=== PATIENT | male | born 1990 | race Caucasian/White ===

== ENCOUNTER 2017-10-25 13:15 | Emergency (ER) | payer SELFPAY ==
[~2017-10-25] VITALS: Ht 172.7 cm; Wt 158.8 kg
[~2017-10-25 13:15] MED LIST: BENZ200C25 PO; CEPH500C PO; HYDR-1231 PO; LEVO750T6 PO; LNS30CCR; METF-380; METF-380 PO; NFPRILOC40 PO; PIOG45TA PO; SRTR100T; TRAZ150T42; TRAZ150T42 PO
[2017-10-25 15:48] LABS: BASOPHILS % (AUTO) 0 % (0-10); EOSINOPHILS # (AUTO) 0.2 10^3/uL (0.0-0.3); EOSINOPHILS % (AUTO) 2 % (0-10); HEMATOCRIT 47 % (40-54); HEMOGLOBIN 15.7 G/DL (13.3-17.7); LYMPHOCYTES # (AUTO) 2.5 X 10^3 (1.0-4.0); LYMPHOCYTES % (AUTO) 25 % (12-44); MEAN CORPUSCULAR HEMOGLOBIN 29 PG (25-34); MEAN CORPUSCULAR HGB CONC 34 G/DL (32-36); MEAN CORPUSCULAR VOLUME 86 FL (80-99); MEAN PLATELET VOLUME 11.5 FL (7.4-10.4); MONOCYTES # (AUTO) 0.8 X 10^3 (0.0-1.0); MONOCYTES % (AUTO) 8 % (0-12); NEUTROPHILS # (AUTO) 6.5 X 10^3 (1.8-7.8); NEUTROPHILS % (AUTO) 65 % (42-75); PLATELET COUNT 240 10^3/uL (130-400); RED CELL DISTRIBUTION WIDTH 13.7 % (10.0-14.5)
[2017-10-25 15:51] LABS: BILIRUBIN,URINE NEGATIVE (NEGATIVE); CLARITY,URINE CLEAR; COLOR,URINE YELLOW; GLUCOSE, URINE (UA) 4+ (NEGATIVE); KETONES,URINE NEGATIVE (NEGATIVE); LEUKOCYTE ESTERASE ,URINE 1+ (NEGATIVE); NITRITE,URINE NEGATIVE (NEGATIVE); PH,URINE 6 (5-9); PROTEIN,URINE 3+ (NEGATIVE); UROBILINOGEN,URINE NORMAL (NORMAL)
[2017-10-25 15:59] LABS: BACTERIA,URINE TRACE /HPF; SQUAMOUS EPITHELIAL CELL,UR 0-2 /HPF
--- NOTE | 2017-10-25 16:08 | Diagnostic Imaging Report ---
INDICATION: Cough. COMPARISON: 01/17/10. EXAMINATION: Single view of the chest was obtained. FINDINGS: Clear lungs, bilaterally. The heart is normal. There is no pneumothorax. The osseous structures are normal. IMPRESSION: Negative chest. Dictated by: Dictated on workstation # [id number]
[2017-10-25 16:11] LABS: ALANINE AMINOTRANSFERASE 26 U/L (0-55); ALBUMIN 4.2 GM/DL (3.2-4.5); ALKALINE PHOSPHATASE 77 U/L (40-136); BILIRUBIN,TOTAL 0.3 MG/DL (0.1-1.0); BUN/CREATININE RATIO 13; CALCIUM 9.2 MG/DL (8.5-10.1); CARBON DIOXIDE 26 MMOL/L (21-32); CHLORIDE 106 MMOL/L (98-107); CREATININE SERUM 0.85 MG/DL (0.60-1.30); GFR ESTIMATED > 60; GLUCOSE 196 MG/DL (70-105); MAGNESIUM 2.1 MG/DL (1.8-2.4); POTASSIUM 3.9 MMOL/L (3.6-5.0); SODIUM 139 MMOL/L (135-145); TOTAL PROTEIN 7.6 GM/DL (6.4-8.2)
[2017-10-25 16:30] LABS: TSH (THYROID ANALYZER) 0.89 UIU/ML (0.35-4.94)
[2017-10-25] MEDS ORDERED: ONDA4TAB8 SL (16:48)
--- NOTE | 2017-10-25 16:49 | ED General ---
General Chief Complaint: Dizziness/Syncope Stated Complaint: SICK X1 WEEK,CHILLS, DIZZY, Nursing Triage Note: PT REPORTS DIZZINESS, MALAISE X 1 WEEK. Nursing Sepsis Screen: No Definite Risk Source of Information: Patient Exam Limitations: No Limitations History of Present Illness Date Seen by Provider: Oct 25, 2017 Time Seen by Provider: 15:13 Initial Comments Patient presents to the emergency room with complaints of several symptoms including dizziness, occasional abdominal pain and nausea. He has vomited a few times. Pain seems to be worse when eating. He is concerned about his occasional dizziness and lightheadedness. He reports a recent episode in which he actually briefly "blacked out". There is no seizure-like activity. He reports having some chills without fever recently. He is noted to be hypertensive with a blood pressure of 146/100 on assessment. He reports having palpitations and chest discomfort but only when he has angrier agitated. He denies tobacco or drug use. He rarely drinks alcohol. He has had mild cough recently. He has diabetes but takes his medications irregularly. Allergies and Home Medications Allergies Coded Allergies: Sulfa (Sulfonamide Antibiotics) (Unverified Allergy, Mild, 12/05/08) Uncoded Allergies: STEROIDS (Allergy, Mild, 12/05/08) Home Medications Cephalexin Monohydrate 500 Mg Capsule, 1 EACH PO TID Prescribed by: JEREMÍAS GARDNER on 11/20/131909 Hydrocodone Bit/Acetaminophen 1 Tab Tablet, 1 TAB PO Q4H PRN for PAIN Prescribed by: JEREMÍAS GARDNER on 11/20/131909 Ondansetron 4 Mg Tab.rapdis, 4 MG SL Q4H PRN for NAUSEA/VOMITING-1ST LINE Prescribed by: TOBY RECINOS on 10/25/17 1648 Patient Home Medication List Home Medication List Reviewed: Yes Constitutional: no symptoms reported EENTM: no symptoms reported Respiratory: see HPI Cardiovascular: see HPI Gastrointestinal: see HPI Genitourinary: no symptoms reported Musculoskeletal: no symptoms reported Skin: no symptoms reported Psychiatric/Neurological: See HPI Hematologic/Lymphatic: No Symptoms Reported Immunological/Allergic: no symptoms reported Past Tlqjali-Jyhzdr-Madepr Hx Patient Social History Alcohol Use: Rarely Uses Recreational Drug Use: No Smoking Status: Never a Smoker Recent Foreign Travel: No Contact w/Someone Who Travel: No Recent Infectious Disease Expo: No Physical Abuse: No Sexual Abuse: No Mistreated: No Fear: No Immunizations Up To Date Tetanus Booster (TDap): Less than 5yrs Surgeries History of Surgeries: No Respiratory History of Respiratory Disorde: Yes Respiratory Disorders: Asthma, Sleep Apnea Cardiovascular History of Cardiac Disorders: Yes Cardiac Disorders: Hypertension Neurological History of Neurological Disord: No Reproductive System Hx Reproductive Disorders: No Genitourinary History of Genitourinary Disor: No Gastrointestinal History of Gastrointestinal Di: No Musculoskeletal History of Musculoskeletal Dis: No Endocrine History of Endocrine Disorders: Yes (morbid obesity) Endocrine Disorders: Diabetes, Non-Insulin dep HEENT History of HEENT Disorders: No Cancer History of Cancer: No Psychosocial History of Psychiatric Problem: No Suicide Risk Score: 0 Integumentary History of Skin or Integumenta: No Blood Transfusions History of Blood Disorders: No Family Medical History Significant Family History: Heart Disease Physical Exam Vital Signs Vital Signs - First Documented 10/25/17 14:02 Temp 98.3 Pulse 115 Resp 18 B/P (MAP) 188/113 (138) Pulse Ox 97 Capillary Refill : Less Than 3 Seconds General Appearance: No Apparent Distress, WD/WN, Obese HEENT: PERRL/EOMI, Normal ENT Inspection Neck: Normal Inspection Respiratory: Lungs Clear, Normal Breath Sounds, No Accessory Muscle Use, No Respiratory Distress Cardiovascular: Regular Rate, Rhythm, No Edema, No Murmur Gastrointestinal: Normal Bowel Sounds, Non Tender, Soft Extremity: Normal Inspection, No Pedal Edema Neurologic/Psychiatric: Alert, Oriented x3, No Motor/Sensory Deficits, Normal Mood/Affect, skimmer reverberatory II-XII Norm as Tested Skin: Normal Color, Warm/Dry Progress/Results/Core Measures Suspected Sepsis Recent Fever Within 48 Hours: No Infection Criteria Present: None New/Unexplained Altered Menta: No Sepsis Screen: No Definite Risk Sepsis Diagnosis: SIRS Temperature:98.3 Pulse: 115 Respiratory Rate: 18 Laboratory Tests 10/25/17 15:40: White Blood Count 10.0 Blood Pressure 188 /113 Mean: 138 Laboratory Tests 10/25/17 15:40: Creatinine 0.85, Platelet Count 240, Total Bilirubin 0.3 Results/Orders Lab Results Laboratory Tests Test 10/25/17 15:40 10/25/17 15:45 Range/Units White Blood Count 10.0 4.3-11.0 10^3/uL Red Blood Count 5.40 4.35-5.85 10^6/uL Hemoglobin 15.7 13.3-17.7 G/DL Hematocrit 47 40-54 % Mean Corpuscular Volume 86 80-99 FL Mean Corpuscular Hemoglobin 29 25-34 PG Mean Corpuscular Hemoglobin Concent 34 32-36 G/DL Red Cell Distribution Width 13.7 10.0-14.5 % Platelet Count 240 130-400 10^3/uL Mean Platelet Volume 11.5 H 7.4-10.4 FL Neutrophils (%) (Auto) 65 42-75 % Lymphocytes (%) (Auto) 25 12-44 % Monocytes (%) (Auto) 8 0-12 % Eosinophils (%) (Auto) 2 0-10 % Basophils (%) (Auto) 0 0-10 % Neutrophils # (Auto) 6.5 1.8-7.8 X 10^3 Lymphocytes # (Auto) 2.5 1.0-4.0 X 10^3 Monocytes # (Auto) 0.8 0.0-1.0 X 10^3 Eosinophils # (Auto) 0.2 0.0-0.3 10^3/uL Basophils # (Auto) 0.0 0.0-0.1 10^3/uL Sodium Level 139 135-145 MMOL/L Potassium Level 3.9 3.6-5.0 MMOL/L Chloride Level 106 98-107 MMOL/L Carbon Dioxide Level 26 21-32 MMOL/L Anion Gap 7 5-14 MMOL/L Blood Urea Nitrogen 11 7-18 MG/DL Creatinine 0.85 0.60-1.30 MG/DL Estimat Glomerular Filtration Rate > 60 BUN/Creatinine Ratio 13 Glucose Level 196 H 70-105 MG/DL Calcium Level 9.2 8.5-10.1 MG/DL Magnesium Level 2.1 1.8-2.4 MG/DL Total Bilirubin 0.3 0.1-1.0 MG/DL Aspartate Amino Transf (AST/SGOT) 25 5-34 U/L Alanine Aminotransferase (ALT/SGPT) 26 0-55 U/L Alkaline Phosphatase 77 40-136 U/L Total Protein 7.6 6.4-8.2 GM/DL Albumin 4.2 3.2-4.5 GM/DL TSH [place] Testing 0.89 0.35-4.94 UIU/ML Urine Color YELLOW Urine Clarity CLEAR Urine pH 6 5-9 Urine Specific [place] 1.020 1.016-1.022 Urine Protein 3+ H NEGATIVE Urine Glucose (UA) 4+ H NEGATIVE Urine Ketones NEGATIVE NEGATIVE Urine Nitrite NEGATIVE NEGATIVE Urine Bilirubin NEGATIVE NEGATIVE Urine Urobilinogen NORMAL NORMAL MG/DL Urine Leukocyte Esterase 1+ H NEGATIVE Urine RBC (Auto) NEGATIVE NEGATIVE Urine RBC NONE /HPF Urine WBC 2-5 /HPF Urine Squamous Epithelial Cells 0-2 /HPF Urine Crystals NONE /LPF Urine Bacteria TRACE /HPF Urine Casts NONE /LPF Urine Mucus NEGATIVE /LPF Urine Culture Indicated NO My Orders Orders - TOBY ENG MD Cbc With Automated Diff (10/25/17 15:22) Comprehensive Metabolic Panel (10/25/17 15:22) Magnesium (10/25/17 15:22) Thyroid Analyzer (10/25/17 15:22) Ua Culture If Indicated (10/25/17 15:22) Saline Lock/Iv-Start (10/25/17 15:22) Ekg Tracing (10/25/17 15:22) Monitor-Rhythm Ecg Trace Only (10/25/17 15:22) Chest Pa/Lat (2 View) (10/25/17 15:22) Hemoglobin A1c (10/25/17 16:33) Vital Signs/I&O Capillary Refill : Less Than 3 Seconds Blood Pressure Mean: 138 ECG Initial ECG Impression Date: Oct 25, 2017 Initial ECG Impression Time: 15:33 Initial ECG Rate: 88 Initial ECG Rhythm: Normal Sinus Initial ECG Intervals: Normal Initial ECG Impression: Normal Comment Normal sinus rhythm with no ST elevation or depression. No abnormal intervals or axis deviation. Diagnostic Imaging Diagonstic Imaging: Xray Plain Films/CT/US/NM/MRI: chest Comments Chest x-ray viewed by me and report reviewed. See report below: NAME: CEDRIC VICK [facility] REC#: [id number] PT STATUS: REG ER : 1990 PHYSICIAN: TOBY ENG MD ADMIT DATE: 10/25/17/ER Signed Date of Exam: 10/25/17 CHEST PA/LAT (2 VIEW) INDICATION: Cough. COMPARISON: 01/17/10. EXAMINATION: Single view of the chest was obtained. FINDINGS: Clear lungs, bilaterally. The heart is normal. There is no pneumothorax. The osseous structures are normal. IMPRESSION: Negative chest. Dictated by: Dictated on workstation # [id number] Dict: 10/25/17 1544 Trans: 10/25/17 1610 Interpreted by: MONSE NEELY Electronically signed by: MONSE NEELY 10/25/17 1610 Departure Impression Impression: Primary Impression: Lightheadedness Additional Impressions: Palpitations Nausea and vomiting Qualified Codes: R11.2 - Nausea with vomiting, unspecified Hyperglycemia Hypertension Qualified Codes: I10 - Essential (primary) hypertension Disposition: HOME, SELF-CARE Condition: Improved Departure-Patient Inst. Decision time for Depature: 16:45 Referrals: [facility] [place]) Primary Care Physician Patient Instructions: Diabetes Type 2 (DC), High Blood Pressure in Adults, Syncope (Fainting) (DC) Add. Discharge Instructions: Continue to take metformin as prescribed. Eat a low carbohydrate low sugar diet. Drink plenty of clear liquids. Follow-up with your primary care provider soon as possible. If palpitations and lightheadedness continue, consider discussing a monitor tech for evaluation of cardiac rhythms in the outpatient setting. Continue to exercise and work toward weight loss. Return to the ER if symptoms worsen. You may use Zofran (ondansetron) as prescribed for nausea and vomiting. Also consider using an antacid medication such as Pepcid (famotidine) or Prilosec (omeprazole) for upset stomach. All discharge instructions reviewed with patient and/or family. Voiced understanding. Scripts Ondansetron (Zofran Odt) 4 Mg Tab.rapdis 4 MG SL Q4H Y for NAUSEA/VOMITING-1ST LINE, #10 TAB Prov: TOBY ENG MD 10/25/17 Work/School Note: Work Release Form Date Seen in the Emergency Department: Oct 25, 2017 Return to Work: Oct 26, 2017 Restrictions: No Restrictions Copy Copies To 1: SUJATHA NUGENT JOSHUA T MD Oct 25, 2017 16:49
[2017-10-25 16:57] VITALS: BP 146/100
--- OUTSIDE RECORDS SUMMARY | 2017-10-26 04:36 | XMS REPORT ---
Author Author ANDI SALAZAR [facility] [place] eClinicalWorks Address Unknown Phone Unavailable Care Team Providers Care Arts [employer] Humanities [employer] Director Name Role Phone ANDI SALAZAR Unavailable Allergies No Known Allergies Problems No Known Problems Medications No Known Medications Results No Known Results Summary Purpose eClinicalWorks Submission
--- OUTSIDE RECORDS SUMMARY | 2017-10-26 04:36 | XMS REPORT ---
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 682835519 Problem Diabetes mellitus E11.9 Active 42429908 Problem Hyperlipidemia E78.5 Active 16044540 ALLERGIES Substance Reaction Event Type Date Status Sulfamethoxazole Unknown Drug Allergy Jun, Active PredniSONE nausea and vomiting Drug Allergy Jun, Active SOCIAL HISTORY No smoking Hx information available PLAN OF CARE Activity Details Follow Up 1 Week Reason:TE VITAL SIGNS Height 68.0 in 2016-07-22 Blood pressure systolic 123 mmHg 2016-07-22 Blood pressure diastolic 81 mmHg 2016-07-22 MEDICATIONS Medication Instructions Dosage Frequency Start Date End Date Duration Status Lisinopril 30 MG Orally Once a day 1 tablet 24h Dec, Active Amoxicillin 500 MG Orally 4 times a day 1 capsule 6h Jun, Jul, 7 days Active Metformin HCl 500 MG Orally Twice a day 1 tablet with meals 12h Dec, Active RESULTS No Results PROCEDURES Procedure Date Ordered Related Diagnosis Body Site LTD ORAL EVALUATION - PROBLEM FOCUS Jul 22, 2016 INTRAORL-PERIAPICAL 1 FILM 92053 Jul 22, 2016 IMMUNIZATIONS No Known Immunizations
--- OUTSIDE RECORDS SUMMARY | 2017-10-26 04:36 | XMS REPORT ---
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
--- OUTSIDE RECORDS SUMMARY | 2017-10-26 04:36 | XMS REPORT | Continuity of Care Document ---
Author Author [facility] Organization [facility] Address Unknown Phone Unavailable Allergies There is no data. Medications There is no data. Problems There is no data. Procedures There is no data. Results There is no data. Encounters ACCT No. Visit Date/Time Discharge Status Pt. Type Provider Facility Loc./Unit Complaint [id number] 11/22/2013 12:38:00 11/22/2013 13:27:00 DIS Emergency [id number] 11/20/2013 22:15:00 11/21/2013 01:23:00 DIS Emergency [id number] 11/20/2013 17:16:00 11/20/2013 19:30:00 DIS Emergency [id number] 04/01/2013 10:25:00 04/01/2013 23:59:59 CLS Outpatient [id number] 03/01/2013 08:39:00 03/01/2013 23:59:59 CLS Outpatient
--- OUTSIDE RECORDS SUMMARY | 2017-10-26 04:36 | XMS REPORT ---
Author Author ANDI SALAZAR [facility] eClinicalWorks Address Unknown Phone Unavailable Care Team Providers Care Payroll Accounting Clerk Name Role Phone ANDI SALAZAR CP Unavailable Allergies, Adverse Reactions, Alerts Substance Reaction Event Type Sulfamethoxazole Info Not Available Drug Allergy PredniSONE nausea and vomiting Drug Allergy Problems Problem Type Condition Code Onset Dates Condition Status Assessment Hyperlipidemia E78.5 Active Assessment Obesity E66.9 Active Assessment Hypertension I10 Active Problem Diabetes mellitus E11.9 Active Problem Obesity E66.9 Active Problem Depression F32.9 Active Problem Hyperlipidemia E78.5 Active Assessment Diabetes mellitus E11.9 Active Problem Hypertension I10 Active 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 Medications Medication Code System Code Instructions Start Date End Date Status Dosage Lisinopril [facility] [address]-57 20 MG Orally Once a day Jun 21, 2015 1 tablet Procedures Procedure Coding System Code Date COMPLETE CBC W/AUTO DIFF WBC CPT-4 89321 November 23, 2015 COMPREHEN METABOLIC PANEL CPT-4 72291 November 23, 2015 GLYCATED HEMOGLOBIN TEST CPT-4 32667 November 23, 2015 Office Visit, Est Pt., Level 4 CPT-4 32567 November 23, 2015 LIPID PANEL CPT-4 64673 November 23, 2015 VENIPUNCT, ROUTINE* CPT-4 92713 November 23, 2015 Vital Signs Date/Time: November 23, 2015 Temperature 98.2 F Weight 350.8 lbs Height 68.0 in BMI 53.33 Index Blood Pressure Diastolic 96 mmHg Blood Pressure Systolic 145 mmHg Cardiac Monitoring Heart Rate 88 bpm Results Name Result Date Reference Range Unit Abnormality Flag CMP ----Calcium, Serum 9.3 20151123 8.7-10.2 mg/dL ----Carbon Dioxide, Total 23 20151123 18-29 mmol/L ----ALT (SGPT) 12 20151123 0-44 IU/L ----Creatinine, Serum 0.91 20151123 0.76-1.27 mg/dL ----AST (SGOT) 22 20151123 0-40 IU/L ----eGFR If NonAfricn Am 117 33130805 >59 mL/min/1.73 ----Alkaline Phosphatase, S 57 20151123 39-117 IU/L ----eGFR If Africn Am 135 48468106 >59 mL/min/1.73 ----Bilirubin, Total 0.5 66990179 0.0-1.2 mg/dL ----BUN/Creatinine Ratio 19 20151123 8-19 ----A/G Ratio 1.4 20151123 1.1-2.5 ----Sodium, Serum 140 50548692 134-144 mmol/L ----Globulin, Total 3.4 15329547 1.5-4.5 g/dL ----Potassium, Serum 4.3 49160887 3.5-5.2 mmol/L ----Glucose, Serum 69 29854348 65-99 mg/dL ----Chloride, Serum 101 39248177 97-108 mmol/L ----Albumin, Serum 4.6 91462639 3.5-5.5 g/dL ----BUN 17 20151123 6-20 mg/dL ----Protein, Total, Serum 8.0 84398573 6.0-8.5 g/dL CBC ----Neutrophils (Absolute) 5.4 55358836 1.4-7.0 x10E3/uL ----Basos 0 96882832 % ----Monocytes(Absolute) 0.9 26330336 0.1-0.9 x10E3/uL ----Lymphs (Absolute) 2.5 60042969 0.7-3.1 x10E3/uL ----Platelets 288 54995048 150-379 x10E3/uL ----Baso (Absolute) 0.0 19951517 0.0-0.2 x10E3/uL ----RDW 13.7 20896093 12.3-15.4 % ----Eos (Absolute) 0.1 20208035 0.0-0.4 x10E3/uL ----MCHC 34.3 82068737 31.5-35.7 g/dL ----MCH 29.1 20151123 26.6-33.0 pg ----MCV 85 20151123 79-97 fL ----Lymphs 28 20151123 % ----Neutrophils 61 20151123 % ----Eos 1 20151123 % ----Monocytes 10 20151123 % ----Immature Granulocytes 0 20151123 % ----Immature Grans (Abs) 0.0 59146360 0.0-0.1 x10E3/uL ----WBC 8.8 38984622 3.4-10.8 x10E3/uL ----RBC 5.43 29128164 4.14-5.80 x10E6/uL ----Hemoglobin 15.8 20151123 12.6-17.7 g/dL ----Hematocrit 46.0 20151123 37.5-51.0 % LIPID PANEL ----VLDL Cholesterol Dillon 18 78595992 5-40 mg/dL ----LDL Cholesterol Calc 88 20151123 0-99 mg/dL ----Triglycerides 91 20151123 0-149 mg/dL ----HDL Cholesterol 39 20151123 >39 mg/dL L ----Cholesterol, Total 145 57519672 100-199 mg/dL Summary Purpose eClinicalWorks Submission
--- OUTSIDE RECORDS SUMMARY | 2017-10-26 04:36 | XMS REPORT ---
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 Problem Obesity E66.9 Active Problem Hypertension I10 Active Problem Diabetes mellitus E11.9 Active Assessment Diabetes mellitus E11.9 Active Assessment Obesity E66.9 Active 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 Problem Hyperlipidemia E78.5 Active Medications Medication Code System Code Instructions Start Date End Date Status Dosage Lisinopril [facility] [id number] 20 MG Orally Once a day Jun 21, 2015 1 tablet Procedures Procedure Coding System Code Date MICROALBUMIN, SEMIQUANT CPT-4 73675 Jun 21, 2015 ASSAY OF URINE CREATININE CPT-4 27156 Jun 21, 2015 GLYCATED HEMOGLOBIN TEST CPT-4 07476 Jun 21, 2015 Office Visit, New Pt., Level 4 CPT-4 54497 Jun 21, 2015 VENIPUNCT, ROUTINE* CPT-4 61464 Jun 21, 2015 COMPLETE CBC W/AUTO DIFF WBC CPT-4 96709 Jun 21, 2015 MICROALBUMIN, QUANTITATIVE CPT-4 14801 Jun 21, 2015 ASSAY THYROID STIM HORMONE CPT-4 94648 Jun 21, 2015 COMPREHEN METABOLIC PANEL CPT-4 01130 Jun 21, 2015 Vital Signs Date/Time: Jun 21, 2015 Temperature 98.2 F Weight 344.8 lbs Height 68.0 in BMI 52.42 Index Blood Pressure Diastolic 92 mmHg Blood Pressure Systolic 150 mmHg Cardiac Monitoring Heart Rate 78 bpm Results Name Result Date Reference Range Unit Abnormality Flag ROUTINE VENIPUNCTURE TSH ----TSH 2.170 20150621 0.450-4.500 uIU/mL A1C (IN HOUSE) ----A1C IN HOUSE 5.2 62601712 4.30 - 5.6 % ----Previous A1c N/A 20150621 ----Lot # [id number] ----Exp date 20150621 MICROALBUMIN, URINE (IN HOUSE) ----CRE 300 mg/mL 20150621 ----ALB 150 mg/L 20150621 ----Control + 20150621 ----A:C (IN HOUSE) 30-300 mg/g 20150621 ----Clarity clear 20150621 ----Color orange 20150621 ----Lot # [id number] 20150621 ----Exp date 20150621 ----MICROALBUMIN abnormal 20150621 CMP ----BUN/Creatinine Ratio 10 20150621- ----eGFR If Africn Am 98 01444838 >59 mL/min/1.73 ----eGFR If NonAfricn Am 85 99020906 >59 mL/min/1.73 ----Creatinine, Serum 1.19 20150621 0.76-1.27 mg/dL ----Chloride, Serum 103 20150621 97-108 mmol/L ----Potassium, Serum 4.4 20150621 3.5-5.2 mmol/L ----Sodium, Serum 144 20150621 134-144 mmol/L ----Protein, Total, Serum 7.4 20150621 6.0-8.5 g/dL ----Albumin, Serum 4.2 20150621 3.5-5.5 g/dL ----Globulin, Total 3.2 20150621 1.5-4.5 g/dL ----A/G Ratio 1.3 20150621 1.1-2.5 ----BUN 12 20150621 6-20 mg/dL ----Glucose, Serum 88 20150621 65-99 mg/dL ----Carbon Dioxide, Total 26 20150621 18-29 mmol/L ----Calcium, Serum 9.3 20150621 8.7-10.2 mg/dL ----AST (SGOT) 17 20150621 0-40 IU/L ----ALT (SGPT) 10 20150621 0-44 IU/L ----Bilirubin, Total 0.4 20150621 0.0-1.2 mg/dL ----Alkaline Phosphatase, S 57 20150621 39-117 IU/L CBC ----RDW 13.5 73031266 12.3-15.4 % ----MCHC 33.4 20150621 31.5-35.7 g/dL ----MCH 29.0 20150621 26.6-33.0 pg ----MCV 87 20150621 79-97 fL ----Hematocrit 48.2 80324741 37.5-51.0 % ----Hemoglobin 16.1 73241226 12.6-17.7 g/dL ----Immature Granulocytes 0 92842721 % ----RBC 5.56 72559295 4.14-5.80 x10E6/uL ----WBC 8.8 81091725 3.4-10.8 x10E3/uL ----Immature Grans (Abs) 0.0 54736459 0.0-0.1 x10E3/uL ----Eos (Absolute) 0.1 05340088 0.0-0.4 x10E3/uL ----Basos 0 22899848 % ----Baso (Absolute) 0.0 94086516 0.0-0.2 x10E3/uL ----Neutrophils (Absolute) 5.8 94605214 1.4-7.0 x10E3/uL ----Lymphs (Absolute) 1.9 74232849 0.7-3.1 x10E3/uL ----Monocytes(Absolute) 0.9 94790467 0.1-0.9 x10E3/uL ----Neutrophils 67 66880425 % ----Lymphs 22 59316145 % ----Monocytes 10 65495382 % ----Eos 1 56360849 % ----Platelets 284 46918731 150-379 x10E3/uL MICROALBUMIN/CREATININE RATIO, URINE ----Microalb/Creat Ratio 308.7 92979934 0.0-30.0 mg/g creat H ----Microalbumin, Urine 744.0 15910269 0.0-17.0 ug/mL H ----Creatinine, Urine 241.0 93685081 24.0-392.0 mg/dL Summary Purpose eClinicalWorks Submission
--- OUTSIDE RECORDS SUMMARY | 2017-10-26 04:36 | XMS REPORT ---
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
--- OUTSIDE RECORDS SUMMARY | 2017-10-26 04:36 | XMS REPORT ---
Author Author ANDI SALAZAR [facility] eClinicalWorks Address Unknown Phone Unavailable Care Team Providers Care Apartment Groundskeeper Name Role Phone ANDI SALAZAR CP Unavailable [...]
== END 2017-10-25 16:57 | disposition home or self-care (01) ==
LOC: EDUNIT# 13:15 → ER 13:18
DX: R42 Dizziness and giddiness (principal); R00.2 Palpitations; R11.2 Nausea with vomiting, unspecified; I10 Essential (primary) hypertension; J45.909 Unspecified asthma, uncomplicated; E11.65 Type 2 diabetes mellitus with hyperglycemia; E66.01 Morbid (severe) obesity due to excess calories; G47.30 Sleep apnea, unspecified; Z68.43 Body mass index [BMI] 50.0-59.9, adult; Z88.8 Allergy status to other drugs, medicaments and biological substances; Z88.2 Allergy status to sulfonamides; Z82.49 Family history of ischemic heart disease and other diseases of the circulatory system
CPT/HCPCS: 36415; 71046; 80053; 81000; 83036; 83735; 84443; 85025; 93005; 93041

== ENCOUNTER 2018-03-08 10:47 | Emergency (ER) | payer SELFPAY ==
[~2018-03-08] VITALS: Ht 172.7 cm; Wt 163.3 kg
[~2018-03-08 10:47] MED LIST changes: +ONDA4TAB8 SL
--- OUTSIDE RECORDS SUMMARY | 2018-03-08 10:52 | XMS REPORT | Continuity of Care Document ---
Author Author [facility] Organization [facility] Address Unknown Phone Unavailable Allergies Active Description Code Type Severity Reaction Onset Reported/Identified Relationship to Patient Clinical Status Yes STEROIDS STEROIDS Mild N/A 12/05/2008 Yes Sulfa (Sulfonamide Antibiotics) [id number] Drug Allergy Mild N/A 2008 Medications There is no data. Problems Date Dx Coded Attending Type Code Diagnosis Diagnosed By 11/20/2013 JEREMÍAS STARK Ot 816.00 FX PHALANX, HAND NOS-CL 11/20/2013 JEREMÍAS STARK Ot 883.0 OPEN WOUND OF FINGER 11/20/2013 JEREMÍAS STARK Ot 959.4 HAND INJURY NOS 11/20/2013 JEREMÍAS STARK Ot E000.0 CIVILIAN ACTIVITY DONE FOR INCOME OR PAY 11/20/2013 JEREMÍAS STARK Ot E928.9 ACCIDENT NOS 11/20/2013 JEREMÍAS STARK Ot V06.1 [id number], COMBINED [ 11/21/2013 JEREMÍAS STARK Ot 998.11 HEMOR COMPLIC A PROCEDURE 11/22/2013 OMERO ISAACS APRN Ot V58.31 ENCOUNTER FOR CHANGE OR REMOVAL OF SURGI 10/27/2017 ALBERTINA MORIN, TOBY Lopes Ot E11.65 TYPE 2 DIABETES MELLITUS WITH HYPERGLYCE 10/27/2017 TOBY ENG MD Ot E66.01 MORBID (SEVERE) OBESITY DUE TO EXCESS CA 10/27/2017 TOBY ENG MD Ot G47.30 SLEEP APNEA, UNSPECIFIED 10/27/2017 TOBY ENG MD Ot I10 ESSENTIAL (PRIMARY) HYPERTENSION 10/27/2017 TOBY ENG MD Ot J45.909 UNSPECIFIED ASTHMA, UNCOMPLICATED 10/27/2017 TOBY ENG MD Ot R00.2 PALPITATIONS 10/27/2017 TOBY ENG MD, Ot R11.2 NAUSEA WITH VOMITING, UNSPECIFIED 10/27/2017 TOBY ENG MD, Ot R42 DIZZINESS AND GIDDINESS 10/27/2017 TOBY ENG MD, Ot Z68.43 BODY MASS INDEX (BMI) 50-59.9 , ADULT 10/27/2017 TOBY ENG MD, Ot Z82.49 FAMILY HX OF ISCHEM HEART DIS AND OTH DI 10/27/2017 TOBY ENG MD, Ot Z88.2 ALLERGY STATUS TO SULFONAMIDES STATUS 10/27/2017 TOBY ENG MD, Ot Z88.8 ALLERGY STATUS TO OTH DRUG/MEDS/BIOL SUB Procedures There is no data. Results Test Result Range Complete blood count (CBC) with automated white blood cell (WBC) differential - 10/25/17 15:40 Blood leukocytes automated count (number/volume) 10.0 10*3/uL 4.3-11.0 Blood erythrocytes automated count (number/volume) 5.40 10*6/uL 4.35-5.85 Venous blood hemoglobin measurement (mass/volume) 15.7 g/dL 13.3-17.7 Blood hematocrit (volume fraction) 47 % 40-54 Automated erythrocyte mean corpuscular volume 86 [foz_us] 80-99 Automated erythrocyte mean corpuscular hemoglobin (mass per erythrocyte) 29 pg 25-34 Automated erythrocyte mean corpuscular hemoglobin concentration measurement ( mass/volume) 34 g/dL 32-36 Automated erythrocyte distribution width ratio 13.7 % 10.0-14.5 Automated blood platelet count (count/volume) 240 10*3/uL 130-400 Automated blood platelet mean volume measurement 11.5 [foz_us] 7.4-10.4 Automated blood neutrophils/100 leukocytes 65 % 42-75 Automated blood lymphocytes/100 leukocytes 25 % 12-44 Blood monocytes/100 leukocytes 8 % 0-12 Automated blood eosinophils/100 leukocytes 2 % 0-10 Automated blood basophils/100 leukocytes 0 % 0-10 Blood neutrophils automated count (number/volume) 6.5 10*3 1.8-7.8 Blood lymphocytes automated count (number/volume) 2.5 10*3 1.0-4.0 Blood monocytes automated count (number/volume) 0.8 10*3 0.0-1.0 Automated eosinophil count 0.2 10*3/uL 0.0-0.3 Automated blood basophil count (count/volume) 0.0 10*3/uL 0.0-0.1 Comprehensive metabolic panel - 10/25/17 15:40 Serum or plasma sodium measurement (moles/volume) 139 mmol/L 135-145 Serum or plasma potassium measurement (moles/volume) 3.9 mmol/L 3.6-5.0 Serum or plasma chloride measurement (moles/volume) 106 mmol/L 98-107 Carbon dioxide 26 mmol/L 21-32 Serum or plasma anion gap determination (moles/volume) 7 mmol/L 5-14 Serum or plasma urea nitrogen measurement (mass/volume) 11 mg/dL 7-18 Serum or plasma creatinine measurement (mass/volume) 0.85 mg/dL 0.60-1.30 Serum or plasma urea nitrogen/creatinine mass ratio 13 NRG Serum or plasma creatinine measurement with calculation of estimated glomerular filtration rate > NRG Serum or plasma glucose measurement (mass/volume) 196 mg/dL 70-105 Serum or plasma calcium measurement (mass/volume) 9.2 mg/dL 8.5-10.1 Serum or plasma total bilirubin measurement (mass/volume) 0.3 mg/dL 0.1-1.0 Serum or plasma alkaline phosphatase measurement (enzymatic activity/volume) 77 U/L 40-136 Serum or plasma aspartate aminotransferase measurement (enzymatic activity/ volume) 25 U/L 5-34 Serum or plasma alanine aminotransferase measurement (enzymatic activity/volume ) 26 U/L 0-55 Serum or plasma protein measurement (mass/volume) 7.6 g/dL 6.4-8.2 Serum or plasma albumin measurement (mass/volume) 4.2 g/dL 3.2-4.5 Magnesium - 10/25/17 15:40 Magnesium 2.1 mg/dL 1.8-2.4 Serum or plasma thyrotropin measurement by detection limit <=0.05 miu/l (units/ volume) - 10/25/17 15:40 Serum or plasma thyrotropin measurement by detection limit <=0.05 miu/l (units/ volume) 0.89 u[iU]/mL 0.35-4.94 Hemoglobin A1c - 10/25/17 15:40 Blood hemoglobin A1C measurement (mass/volume) 6.6 % 4.0- 5.6 MEAN BLOOD GLUCOSE 143 % <=126 Complete urinalysis with reflex to culture - 10/25/17 15:45 Urine color determination YELLOW NRG Urine clarity determination CLEAR NRG Urine pH measurement by test strip 6 5-9 Specific gravity of urine by test strip 1.020 1.016- 1.022 Urine protein assay by test strip, semi-quantitative 3+ NEGATIVE Urine glucose detection by automated test strip 4+ NEGATIVE Erythrocytes detection in urine sediment by light microscopy NEGATIVE NEGATIVE Urine ketones detection by automated test strip NEGATIVE NEGATIVE Urine nitrite detection by test strip NEGATIVE NEGATIVE Urine total bilirubin detection by test strip NEGATIVE NEGATIVE Urine urobilinogen measurement by automated test strip (mass/volume) NORMAL NORMAL Urine leukocyte esterase detection by dipstick 1+ NEGATIVE Automated urine sediment erythrocyte count by microscopy (number/high power field) NONE NRG Automated urine sediment leukocyte count by microscopy (number/high power field ) [HPF] NRG Bacteria detection in urine sediment by light microscopy TRACE NRG Squamous epithelial cells detection in urine sediment by light microscopy 0-2 NRG Crystals detection in urine sediment by light microscopy NONE NRG Casts detection in urine sediment by light microscopy NONE NRG Mucus detection in urine sediment by light microscopy NEGATIVE NRG Complete urinalysis with reflex to culture NO NRG Encounters ACCT No. Visit Date/Time Discharge Status Pt. Type Provider Facility Loc./Unit Complaint [id number] 10/25/2017 13:18:00 10/25/2017 16:57:00 DIS Emergency ALBERTINA MORIN, TOBY Lopes [facility] ER SICK X1 WEEK,CHILLS, DIZZY, [id number] 11/22/2013 12:38:00 11/22/2013 13:27:00 DIS Emergency OMERO ISAACS APRN [facility] ER WOUND CHECK [id number] 11/20/2013 22:15:00 11/21/2013 01:23:00 DIS Emergency JEREMÍAS STARK [facility] ER L MIDDLE FINGER INJ [id number] 11/20/2013 17:16:00 11/20/2013 19:30:00 DIS Emergency JEREMÍAS STARK [facility] ER L HAND INJ [id number] 04/01/2013 10:25:00 04/01/2013 23:59:59 CLS Outpatient [id number] 03/01/2013 08:39:00 03/01/2013 23:59:59 CLS Outpatient
[2018-03-08] MEDS ORDERED: TRAM-42 PO (12:34)
--- NOTE | 2018-03-08 12:35 | ED Upper Extremity ---
General Chief Complaint: Upper Extremity Stated Complaint: RT SHOULDER PAIN Nursing Triage Note: ARRIVED VIA AMB TO ROOM 10. COMPLAINS OF RIGHT SHOULDER PAIN FOR A WEEK ET THINKS IT IS DISLOCATED. Nursing Sepsis Screen: No Definite Risk Source: patient Exam Limitations: no limitations History of Present Illness Date Seen by Provider: Mar 08, 2018 Time Seen by Provider: 12:31 Initial Comments To ER with reports of right shoulder pain for about a week. 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 He denies any recent injury that he can recall. He does report a lot of popping sensations in his shoulder. He's never had an MRI. Onset: last week Severity: moderate Pain/Injury Location: right shoulder Method of Injury: unknown Modifying Factors: Worse With Movement Allergies and Home Medications Allergies Coded Allergies: Sulfa (Sulfonamide Antibiotics) (Unverified Allergy, Mild, 12/05/08) Uncoded Allergies: STEROIDS (Allergy, Mild, 12/05/08) Home Medications Tramadol HCl 50 Mg Tablet, 50 MG PO Q6H PRN for PAIN-SEVERE Prescribed by: OMERO ISAACS on 03/08/18 1234 Patient Home Medication List Home Medication List Reviewed: Yes Constitutional: see HPI EENTM: see HPI Respiratory: no symptoms reported Cardiovascular: no symptoms reported Genitourinary: no symptoms reported Musculoskeletal: see HPI Skin: no symptoms reported Psychiatric/Neurological: No Symptoms Reported Past Nuonyzv-Tmbadv-Pbkyqp Hx Patient Social History Recent Foreign Travel: No Contact w/Someone Who Travel: No Recent Infectious Disease Expo: No Immunizations Up To Date Tetanus Booster (TDap): Less than 5yrs Past Medical History Surgeries: Yes Appendectomy, Tonsillectomy Respiratory: Yes Asthma, Sleep Apnea Cardiac: Yes Hypertension Neurological: No Reproductive Disorders: No Genitourinary: No Gastrointestinal: No Musculoskeletal: No Endocrine: Yes (morbid obesity) Diabetes, Non-Insulin dep HEENT: No Cancer: No Psychosocial: No Integumentary: No Blood Disorders: No Family Medical History Heart Disease Physical Exam Vital Signs Vital Signs - First Documented 03/08/18 11:47 Temp 98.3 Pulse 87 Resp 16 B/P (MAP) 139/102 (114) Pulse Ox 98 O2 Delivery Room Air Capillary Refill : Less Than 3 Seconds Height, Weight, BMI Height: 5'8.00" Weight: 360lbs. oz. 163.148687ys; BMI Method:Stated General Appearance: WD/WN, no apparent distress HEENT: PERRL/EOMI, normal ENT inspection Neck: non-tender, full range of motion Respiratory: no respiratory distress, no accessory muscle use Gastrointestinal: normal bowel sounds, non tender Shoulder: normal inspection, non-tender Elbow/Forearm: normal inspection, non-tender, Right (crepitus upon movement of the right shoulder) Wrist: Yes normal inspection, Yes non-tender, Yes no evidence of injury Hand: normal inspection, non-tender Neurologic/Tendon: normal sensation, normal motor functions, normal tendon functions Neurologic/Psychiatric: alert, normal mood/affect, oriented x 3 Skin: normal color, warm/dry Progress/Results/Core Measures Results/Orders My Orders Orders - OMERO ISAACS APRN Shoulder, Right, 3 Views (03/08/18 12:27) Vital Signs/I&O 03/08/18 03/08/18 11:47 13:01 Temp 98.3 98.3 Pulse 87 87 Resp 16 16 B/P (MAP) 139/102 (114) 139/102 (114) Pulse Ox 98 98 O2 Delivery Room Air Blood Pressure Mean: 114 Departure Impression Primary Impression: Internal derangement of right shoulder Disposition: 01 HOME, SELF-CARE Condition: Stable Departure-Patient Inst. Decision time for Depature: 12:33 Referrals: WIL MARINELLI MD [facility] (PCP/Family) Primary Care Physician DANIEL WATKINS MD,CHEKO MOYA MD, ROBERT F DO ZAFUTA, MICHAEL P MD Patient Instructions: Shoulder Sprain Add. Discharge Instructions: 1. Call orthopedic surgeon of your choosing next week for further evaluation. Medication as directed. All discharge instructions reviewed with patient and/or family. Voiced understanding. Scripts Tramadol HCl (Ultram) 50 Mg Tablet 50 MG PO Q6H PRN for PAIN-SEVERE, #10 TAB Prov: OMERO ISAACS APRN 03/08/18 Work/School Note: Work Release Form Date Seen in the Emergency Department: Mar 08, 2018 Return to Work: Mar 09, 2018 Other Restrictions Listed Below: right arm in sling until cleared OMERO ISAACS APRN Mar 08, 2018 12:35
[2018-03-08 13:01] VITALS: BP 139/102
--- NOTE | 2018-03-08 13:05 | Diagnostic Imaging Report ---
INDICATION: Right shoulder injury. COMPARISON: None. FINDINGS: Five views of the right shoulder demonstrate no fracture or dislocation. Articular surfaces are normal. No osseous lesion. IMPRESSION: Negative right shoulder. Dictated by: Dictated on workstation # [id number]
== END 2018-03-08 13:01 | disposition home or self-care (01) ==
LOC: EDUNIT# 10:47 → ER 10:49
DX: M24.111 Other articular cartilage disorders, right shoulder (principal); J45.909 Unspecified asthma, uncomplicated; I10 Essential (primary) hypertension; E66.01 Morbid (severe) obesity due to excess calories; E11.9 Type 2 diabetes mellitus without complications; Z88.2 Allergy status to sulfonamides; Z88.8 Allergy status to other drugs, medicaments and biological substances; Z90.49 Acquired absence of other specified parts of digestive tract; Z90.89 Acquired absence of other organs
CPT/HCPCS: 73030; 99282

== ENCOUNTER 2018-04-01 02:00 | Day surgery (SDC) | payer SELFPAY ==
[~2018-04-01] VITALS: Ht 172.7 cm; Wt 174.6 kg
[~2018-04-01 02:00] MED LIST changes: +TRAM-42 PO
[2018-04-01] MEDS ORDERED: NS IV 1000 ML 1,000 ML IV ONE ×2 (02:30→04:27)
[2018-04-01] MEDS ORDERED: fentaNYL INJECTION 100 MCG/2 ML AMP IVP ONE ×2 (02:30→15:00)
[2018-04-01 02:42] LABS: BASOPHILS % (AUTO) 0 % (0-10); EOSINOPHILS # (AUTO) 0.1 10^3/uL (0.0-0.3); EOSINOPHILS % (AUTO) 1 % (0-10); HEMATOCRIT 46 % (40-54); HEMOGLOBIN 15.8 G/DL (13.3-17.7); LYMPHOCYTES # (AUTO) 3.6 X 10^3 (1.0-4.0); LYMPHOCYTES % (AUTO) 28 % (12-44); MEAN CORPUSCULAR HEMOGLOBIN 29 PG (25-34); MEAN CORPUSCULAR HGB CONC 35 G/DL (32-36); MEAN CORPUSCULAR VOLUME 85 FL (80-99); MEAN PLATELET VOLUME 11.8 FL (7.4-10.4); MONOCYTES # (AUTO) 0.9 X 10^3 (0.0-1.0); MONOCYTES % (AUTO) 7 % (0-12); NEUTROPHILS # (AUTO) 8.3 X 10^3 (1.8-7.8); NEUTROPHILS % (AUTO) 64 % (42-75); PLATELET COUNT 298 10^3/uL (130-400); RED BLOOD COUNT 5.39 10^6/uL (4.35-5.85); RED CELL DISTRIBUTION WIDTH 13.9 % (10.0-14.5); WHITE BLOOD COUNT 12.9 10^3/uL (4.3-11.0)
[2018-04-01 02:59] LABS: ALANINE AMINOTRANSFERASE 21 U/L (0-55); ALBUMIN 4.2 GM/DL (3.2-4.5); ALKALINE PHOSPHATASE 62 U/L (40-136); BILIRUBIN,TOTAL 0.5 MG/DL (0.1-1.0); BUN/CREATININE RATIO 11; CALCIUM 9.5 MG/DL (8.5-10.1); CARBON DIOXIDE 22 MMOL/L (21-32); CHLORIDE 105 MMOL/L (98-107); GFR ESTIMATED > 60; GLUCOSE 110 MG/DL (70-105); LIPASE 33 U/L (8-78); POTASSIUM 3.9 MMOL/L (3.6-5.0); SODIUM 141 MMOL/L (135-145); TOTAL PROTEIN 7.9 GM/DL (6.4-8.2)
--- NOTE | 2018-04-01 03:13 | ED Abdominal Pain ---
General Chief Complaint: Abdominal/GI Problems Stated Complaint: ABD PAIN Nursing Triage Note: PT AMB TO ROOM #6 W/O DIFFICULTY. A&OX4. CO MEDIAL ABD PAIN THAT RADIATES DOWN TO LOWER ABD. PT REPORTS THE PAIN BEGAN 03/29/18 AND HAS BEEN INCREASING IN INTENSITY SENSE. DENIES N/V/D. REPORTS "LAYING DOWN MAKES PAIN WORSE," CONSTIPATION, AND DECREASED APPETITE. ABD NOTED TO BE ROUND, NON DISTENDED, AND TENDER UPON PALPATION. REPORS LBM 03/31/18 Source of Information: Patient, Old Records Exam Limitations: No Limitations History of Present Illness Date Seen by Provider: Apr 01, 2018 Time Seen by Provider: 02:20 Initial Comments This 27-year-old gentleman presents to the emergency room with 3 days of severe epigastric and central abdominal pain. It is worse with lying flat. He denies any nausea or vomiting. He has had some constipation. His last oral consumption was at 17:00 when he ate at [employer]. He is afebrile. He does have a history of pancreatitis. Allergies and Home Medications Allergies Coded Allergies: Sulfa (Sulfonamide Antibiotics) (Unverified Allergy, Mild, 12/05/08) Uncoded Allergies: STEROIDS (Allergy, Mild, 12/05/08) Home Medications Tramadol HCl 50 Mg Tablet, 50 MG PO Q6H PRN for PAIN-SEVERE Prescribed by: OMERO ISAACS on 03/08/18 1234 Patient Home Medication List Home Medication List Reviewed: Yes Review of Systems Review of Systems Constitutional: no symptoms reported EENTM: No Symptoms Reported Respiratory: No Symptoms Reported Cardiovascular: No Symptoms Reported Gastrointestinal: See HPI Genitourinary: No Symptoms Reported Musculoskeletal: no symptoms reported Skin: no symptoms reported Psychiatric/Neurological: No Symptoms Reported Endocrine: No Symptoms Reported Hematologic/Lymphatic: No Symptoms Reported Past Qsqonzh-Qtnvgc-Hsqrvo Hx Past Med/Social Hx: Reviewed Nursing Past Med/Soc Hx Patient Social History Alcohol Use: Denies Use Recreational Drug Use: No Smoking Status: Never a Smoker 2nd Hand Smoke Exposure: No Recent Foreign Travel: No Contact w/Someone Who Travel: No Recent Infectious Disease Expo: No Recent Hopitalizations: No Physical Abuse: No Sexual Abuse: No Immunizations Up To Date Tetanus Booster (TDap): Less than 5yrs Past Medical History Surgeries: Yes Appendectomy, Tonsillectomy Respiratory: Yes Asthma, Sleep Apnea Cardiac: Yes Hypertension Neurological: No Reproductive Disorders: No Genitourinary: No Gastrointestinal: No Musculoskeletal: No Endocrine: Yes (morbid obesity) Diabetes, Non-Insulin dep HEENT: No Cancer: No Psychosocial: No Integumentary: No Blood Disorders: No Family Medical History Reviewed Nursing Family Hx Heart Disease Physical Exam Vital Signs Vital Signs - First Documented 04/01/18 02:10 Temp 98.0 Pulse 95 Resp 18 B/P (MAP) 147/101 (116) Pulse Ox 97 O2 Delivery Room Air Capillary Refill : Less Than 3 Seconds Height/Weight/BMI Height: 5'8.00" Weight: 360lbs. oz. 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 II-XII nml as tested, no motor/sensory deficits, alert, normal mood/affect, oriented x 3 Skin: normal color, warm/dry Progress/Results/Core Measures Results/Orders Lab Results Laboratory Tests Test 04/01/18 02:33 04/01/18 03:54 Range/Units White Blood Count 12.9 H 4.3-11.0 10^3/uL Red Blood Count 5.39 4.35-5.85 10^6/uL Hemoglobin 15.8 13.3-17.7 G/DL Hematocrit 46 40-54 % Mean Corpuscular Volume 85 80-99 FL Mean Corpuscular Hemoglobin 29 25-34 PG Mean Corpuscular Hemoglobin Concent 35 32-36 G/DL Red Cell Distribution Width 13.9 10.0-14.5 % Platelet Count 298 130-400 10^3/uL Mean Platelet Volume 11.8 H 7.4-10.4 FL Neutrophils (%) (Auto) 64 42-75 % Lymphocytes (%) (Auto) 28 12-44 % Monocytes (%) (Auto) 7 0-12 % Eosinophils (%) (Auto) 1 0-10 % Basophils (%) (Auto) 0 0-10 % Neutrophils # (Auto) 8.3 H 1.8-7.8 X 10^3 Lymphocytes # (Auto) 3.6 1.0-4.0 X 10^3 Monocytes # (Auto) 0.9 0.0-1.0 X 10^3 Eosinophils # (Auto) 0.1 0.0-0.3 10^3/uL Basophils # (Auto) 0.0 0.0-0.1 10^3/uL Sodium Level 141 135-145 MMOL/L Potassium Level 3.9 3.6-5.0 MMOL/L Chloride Level 105 98-107 MMOL/L Carbon Dioxide Level 22 21-32 MMOL/L Anion Gap 14 5-14 MMOL/L Blood Urea Nitrogen 12 7-18 MG/DL Creatinine 1.10 0.60-1.30 MG/DL Estimat Glomerular Filtration Rate > 60 BUN/Creatinine Ratio 11 Glucose Level 110 H 70-105 MG/DL Calcium Level 9.5 8.5-10.1 MG/DL Corrected Calcium 9.3 8.5-10.1 MG/DL Total Bilirubin 0.5 0.1-1.0 MG/DL Aspartate Amino Transf (AST/SGOT) 16 5-34 U/L Alanine Aminotransferase (ALT/SGPT) 21 0-55 U/L Alkaline Phosphatase 62 40-136 U/L Total Protein 7.9 6.4-8.2 GM/DL Albumin 4.2 3.2-4.5 GM/DL Lipase 33 8-78 U/L Urine Color YELLOW Urine Clarity CLEAR Urine pH 5 5-9 Urine Specific Donora 1.030 H 1.016-1.022 Urine Protein 3+ H NEGATIVE Urine Glucose (UA) NEGATIVE NEGATIVE Urine Ketones 1+ H NEGATIVE Urine Nitrite NEGATIVE NEGATIVE Urine Bilirubin 1+ H NEGATIVE Urine Urobilinogen 4 H NORMAL MG/DL Urine Leukocyte Esterase 1+ H NEGATIVE Urine RBC (Auto) NEGATIVE NEGATIVE Urine RBC NONE /HPF Urine WBC 2-5 /HPF Urine Squamous Epithelial Cells 2-5 /HPF Urine Crystals PRESENT H /LPF Urine Calcium Oxalate Crystals MODERATE H /LPF Urine Bacteria MODERATE H /HPF Urine Casts NONE /LPF Urine Mucus MODERATE H /LPF Urine Culture Indicated NO My Orders Orders - TOBY ENG MD Cbc With Automated Diff (04/01/18 02:30) Comprehensive Metabolic Panel (04/01/18 02:30) Lipase (9/5/18 02:30) Ua Culture If Indicated (04/01/18 02:30) Saline Lock/Iv-Start (04/01/18 02:30) Saline Lock/Iv-Start (04/01/18 02:30) Ns Iv 1000 Ml (Sodium Chloride 0.9%) (04/01/18 02:30) Fentanyl Injection (Sublimaze Injection (04/01/18 02:30) Abdomen, Flat & Upright/Decub (04/01/18 03:23) Us Gallbladder [id number] (04/01/18 03:23) Saline Lock/Iv-Start (04/01/18 04:21) Ns Iv 1000 Ml (Sodium Chloride 0.9%) (04/01/18 04:27) Piperacillin Sodium/Tazobactam (Zosyn Vi (04/01/18 05:45) Medications Given in ED Current Medications Medications Dose Ordered Sig/Juancarlos Route Start Time Stop Time Status Last Admin Dose Admin Fentanyl Citrate 50 mcg ONCE ONCE IVP 04/01/18 02:30 04/01/18 02:33 DC 04/01/18 02:40 50 MCG Piperacillin Sod/ Tazobactam Sod 4.5 gm/Sodium Chloride 100 ml @ 200 mls/hr ONCE ONCE IV 04/01/18 05:45 04/01/18 06:14 04/01/18 05:41 200 MLS/HR Sodium Chloride 1,000 ml @ 0 mls/hr Q0M ONCE IV 04/01/18 02:30 04/01/18 02:33 DC 04/01/18 02:40 0 MLS/HR Sodium Chloride 1,000 ml @ 0 mls/hr Q0M ONCE IV 04/01/18 04:27 04/01/18 04:28 DC 04/01/18 04:45 0 MLS/HR Vital Signs/I&O 04/01/18 02:10 Temp 98.0 Pulse 95 Resp 18 B/P (MAP) 147/101 (116) Pulse Ox 97 O2 Delivery Room Air Blood Pressure Mean: 116 Progress Progress Note #1: Time: 03:15 Progress Note Patient was found to have a mild leukocytosis. CT imaging was desired but patient does not satisfy the weight requirements for the CT scanner. As an alternative x-ray and ultrasound are being obtained. Fentanyl was given for pain and patient is comfortable. Progress Note #2: Time: 04:50 Progress Note KUB and upright x-rays were unremarkable. Ultrasound demonstrated some gallbladder sludge and stones. There is also questionable pericholecystic fluid per the retail merchandiser technician. Patient was reexamined and found to have more focal tenderness in the right upper quadrant. He is still fairly comfortable after the fentanyl. Progress Note #3: Time: 05:45 Progress Note There is suggestion of acute cholecystitis based on ultrasound results. This correlates with patient's right upper quadrant pain and tenderness on exam. Patient also had an elevated WBC. Dr. Pace was consulted and surgery is anticipated. He requested Zosyn be initiated. Diagnostic Imaging Diagonstic Imaging: Xray Plain Films/CT/US/NM/MRI: abdomen, pelvis Comments KUB and upright x-rays viewed by me. Report not yet available. No acute abnormalities were appreciated. Diagonstic Imaging: Ultrasound Plain Films/CT/US/NM/MRI: abdomen Comments Gallbladder ultrasound discussed with retail merchandiser technician. [employer] report reviewed. There is evidence of gallstones and sludge as well as possible pericholecystic fluid. Departure Communication (Admissions) Time/Spoke to Admitting Phy: 05:30 Dr. Pace Impression Primary Impression: Acute cholecystitis Additional Impression: Acute abdominal pain Disposition: ADMITTED INPATIENT Condition: Improved Admissions Decision to Admit Reason: Admit from ER (General) Decision to Admit/Date: Apr 01, 2018 Time/Decision to Admit Time: 05:25 Departure-Patient Inst. Referrals: [facility] (PCP/Family) Primary Care Physician TOBY ENG MD Apr 01, 2018 03:13
[2018-04-01 04:04] LABS: BILIRUBIN,URINE 1+ (NEGATIVE); CLARITY,URINE CLEAR; COLOR,URINE YELLOW; GLUCOSE, URINE (UA) NEGATIVE (NEGATIVE); KETONES,URINE 1+ (NEGATIVE); LEUKOCYTE ESTERASE ,URINE 1+ (NEGATIVE); NITRITE,URINE NEGATIVE (NEGATIVE); PH,URINE 5 (5-9); PROTEIN,URINE 3+ (NEGATIVE); UROBILINOGEN,URINE 4 MG/DL (NORMAL)
[2018-04-01 04:16] LABS: BACTERIA,URINE MODERATE /HPF; CALCIUM OXALATE CRYSTALS,UR MODERATE /LPF
--- OUTSIDE RECORDS SUMMARY | 2018-04-01 05:24 | XMS REPORT | Continuity of Care Document ---
Author Author [facility] Organization [facility] Address Unknown Phone Unavailable Allergies Active Description Code Type Severity Reaction Onset Reported/Identified Relationship to Patient Clinical Status Yes STEROIDS STEROIDS Mild N/A 12/05/2008 Yes Sulfa (Sulfonamide Antibiotics) [id number] Drug Allergy Mild N/A 2008 Medications There [...] ACCIDENT NOS 11/20/2013 JEREMÍAS STARK Ot V06.1 [id number], COMBINED [ 11/21/2013 JEREMÍAS STARK Ot 998.11 [...] Z88.2 ALLERGY STATUS TO SULFONAMIDES STATUS 10/27/2017 TOYB ENG MD, Ot Z88.8 ALLERGY STATUS TO [...] Status Pt. Type Provider Facility Loc./Unit Complaint [id number] 10/25/2017 13:18:00 10/25/2017 16:57:00 DIS Emergency ALBERTINA MORIN, TOBY Lopes [facility] ER SICK X1 WEEK,CHILLS, DIZZY, [id number] 11/22/2013 12:38:00 11/22/2013 13:27:00 DIS Emergency OMERO ISAACS APRN [facility] ER WOUND CHECK [id number] 11/20/2013 22:15:00 11/21/2013 01:23:00 DIS Emergency JEREMÍAS STARK [facility] ER L MIDDLE FINGER INJ [id number] 11/20/2013 17:16:00 11/20/2013 19:30:00 DIS Emergency JEREMÍAS STARK [facility] ER L HAND INJ [id number] 04/01/2013 10:25:00 04/01/2013 23:59:59 CLS Outpatient [id number] 03/01/2013 08:39:00 03/01/2013 23:59:59 CLS Outpatient
[2018-04-01] MEDS ORDERED: PIPERACILLIN SODIUM/TAZOBACTAM 4.5 GM in NS (IVPB) 100 ML IV ONE (05:45)
--- OUTSIDE RECORDS SUMMARY | 2018-04-01 05:53 | XMS REPORT | Continuity of Care Document ---
Author Author [facility] Organization [facility] Address Unknown Phone Unavailable Allergies Active Description Code Type Severity Reaction Onset Reported/Identified Relationship to Patient Clinical Status Yes STEROIDS STEROIDS Mild N/A 12/05/2008 Yes Sulfa (Sulfonamide Antibiotics) [id number] Drug Allergy Mild N/A 2008 Medications There [...] ACCIDENT NOS 11/20/2013 JEREMÍAS STARK Ot V06.1 [id number], COMBINED [ 11/21/2013 JEREMÍAS STAKR Ot 998.11 HEMOR COMPLIC A PROCEDURE 11/22/2013 [...] Status Pt. Type Provider Facility Loc./Unit Complaint [id number] 10/25/2017 13:18:00 10/25/2017 16:57:00 DIS Emergency ALBERTINA MORIN, TOBY Lopes [facility] ER SICK X1 WEEK,CHILLS, DIZZY, [id number] 11/22/2013 12:38:00 11/22/2013 13:27:00 DIS Emergency OMERO ISAACS APRN [facility] ER WOUND CHECK [id number] 11/20/2013 22:15:00 11/21/2013 01:23:00 DIS Emergency JEREMÍAS STARK [facility] ER L MIDDLE FINGER INJ [id number] 11/20/2013 17:16:00 11/20/2013 19:30:00 DIS Emergency JEREMÍAS STARK [facility] ER L HAND INJ [id number] 04/01/2013 10:25:00 04/01/2013 23:59:59 CLS Outpatient [id number] 03/01/2013 08:39:00 03/01/2013 23:59:59 CLS Outpatient
--- NOTE | 2018-04-01 06:25 | Diagnostic Imaging Report ---
PROCEDURE: US Gallbladder. TECHNIQUE: Multiple real-time grayscale images were obtained over the right upper quadrant in various projections. INDICATION: Right upper quadrant pain. Patient also reports midline abdominal pain. FINDINGS: There is echogenic appearance of the liver which is enlarged measuring 23 cm in long axis. Gallbladder shows sludge present with some acoustical shadowing. Gallbladder wall thickness upper limits of normal. There is some question of pericholecystic fluid. Detail is limited due to body habitus. Bile ducts are not dilated. Pancreas is not visualized. Portal vein is patent. Right kidney appears normal. There is no ascites. IMPRESSION: 1. Limited study due to body habitus. 2. Hepatomegaly with hepatic steatosis. 3. Abnormal gallbladder with probable stones with acoustical shadowing. There is sludge. Gallbladder wall upper limits of normal with concern of some mild pericholecystic fluid. Findings are suspicious for possible cholecystitis. Dictated by: Dictated on workstation # [id number]
--- NOTE | 2018-04-01 06:55 | Diagnostic Imaging Report ---
INDICATION: Abdominal pain Supine and upright views of the abdomen are obtained. Overall bowel gas pattern is within normal limits. There is no evidence of free intraperitoneal gas or pneumatosis. No pathologic abdominal calcification is identified. There is mild stool content throughout the colon. Mild degenerative findings are seen at the lumbosacral junction. IMPRESSION: No acute abnormality is identified. Dictated by: Dictated on workstation # [id number]
[2018-04-01 07:06] VITALS: BP 163/97
[2018-04-01] MEDS ORDERED: NS IV 1000 ML 1,000 ML IV SCH (07:30)
[2018-04-01] MEDS ORDERED: CATHETER FLUSH 10 ML SYR IV PRN (07:30)
[2018-04-01] MEDS ORDERED: ONDANSETRON 4 MG/2 ML (SDV) Z0FRAN IV PRN (07:30)
[2018-04-01 08:00] VITALS: BP 138/90
[2018-04-01] MEDS ORDERED: ASPI-808 PO (08:53)
[2018-04-01] MEDS ORDERED: METF-397 PO (08:54)
--- NOTE | 2018-04-01 09:44 | History & Physical-Surgical ---
History of Present Illness History of Present Illness Reason for visit/HPI Chief complaint epigastric abdominal pain Patient is a 27-year-old male who has been having epigastric abdominal pain for approximately 3 days. Patient states that pain is usually a dull aching type pain which will have occasional sharp pain. No significant radiation. Patient states that spicy and fatty foods makes worse. Patient does not have any nausea or vomiting. Patient states that he's had episodes of pain like this before but usually resolve. Patient states that this is continued on for about 3 days now. It was extremely worsened with eating [place] yesterday evening. Patient had ultrasound demonstrating sludge and questionable pericholecystic fluid and possible stones in the gallbladder. His white count was elevated at 12.9. Date of Admission Apr 01, 2018 at 05:30 Date Seen by Provider: Apr 01, 2018 Time Seen by Provider: 08:34 I consulted on this patient on 04/01/18 09:39 Attending Physician Yany Pace DO Admitting Physician [place] Consult Allergies and Home Medications Allergies Coded Allergies: Sulfa (Sulfonamide Antibiotics) (Unverified Allergy, Mild, 12/05/08) Uncoded Allergies: STEROIDS (Allergy, Mild, 12/05/08) Home Medications Aspirin 325 Mg Tablet, 325-1,300 MG PO DAILY PRN for PAIN-MILD, (Reported) Metformin HCl 500 Mg Tablet, 500 MG PO DAILY PRN for BS>200, (Reported) TAKES FOR WEIGHT LOSS Patient Home Medication List Home Medication List Reviewed: Yes Past Tevrmaj-Pjxkcp-Eetzyp Hx Patient Social History Alcohol Use: Denies Use Recreational Drug Use: No Smoking Status: Never a Smoker 2nd Hand Smoke Exposure: No Recent Foreign Travel: No Contact w/Someone Who Travel: No Recent Infectious Disease Expo: No Recent Hopitalizations: No Immunizations Up To Date Tetanus Booster (TDap): Less than 5yrs Surgeries History of Surgeries: Yes Surgeries: Appendectomy, Tonsillectomy Respiratory History of Respiratory Disorde: Yes Respiratory Disorders: Asthma, Sleep Apnea Cardiovascular History of Cardiac Disorders: Yes Cardiac Disorders: Hypertension Neurological History of Neurological Disord: No Reproductive System Hx Reproductive Disorders: No Genitourinary History of Genitourinary Disor: No Gastrointestinal History of Gastrointestinal Di: No Musculoskeletal History of Musculoskeletal Dis: No Endocrine History of Endocrine Disorders: Yes (morbid obesity) Endocrine Disorders: Diabetes, Non-Insulin dep HEENT History of HEENT Disorders: No Cancer History of Cancer: No Psychosocial History of Psychiatric Problem: No Integumentary History of Skin or Integumenta: No Blood Transfusions History of Blood Disorders: No Family Medical History Significant Family History: Heart Disease Review of Systems Constitutional: no symptoms reported EENTM: no symptoms reported Respiratory: no symptoms reported Cardiovascular: no symptoms reported Gastrointestinal: see HPI Genitourinary: no symptoms reported Musculoskeletal: no symptoms reported Skin: no symptoms reported Psychiatric/Neurological: No Symptoms Reported Physical Exam Vital Signs Vital Signs - First Documented 04/01/18 02:10 Temp 98.0 Pulse 95 Resp 18 B/P (MAP) 147/101 (116) Pulse Ox 97 O2 Delivery Room Air Capillary Refill : Less Than 3 Seconds Height, Weight, BMI Height: 5'8.00" Weight: 385lbs. 0.0oz. 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9, Eosinophils # (Auto) 0.1, Basophils # (Auto) 0.0, Sodium Level 141, Potassium Level 3.9, Chloride Level 105, Carbon Dioxide Level 22, Anion Gap 14, Blood Urea Nitrogen 12, Creatinine 1.10, Estimat Glomerular Filtration Rate > 60, BUN/ Creatinine Ratio 11, Glucose Level 110H, Calcium Level 9.5, Corrected Calcium 9.3, Total Bilirubin 0.5, Aspartate Amino Transf (AST/SGOT) 16, Alanine Aminotransferase (ALT/SGPT) 21, Alkaline Phosphatase 62, Total Protein 7.9, Albumin 4.2, Lipase 33 04/01/18 03:54: Urine Color YELLOW, Urine Clarity CLEAR, Urine pH 5, Urine Specific [place] 1.030H, Urine Protein 3+H, Urine Glucose (UA) NEGATIVE, Urine Ketones 1+H, Urine Nitrite NEGATIVE, Urine Bilirubin 1+H, Urine Urobilinogen 4H, Urine Leukocyte Esterase 1+H, Urine RBC (Auto) NEGATIVE, Urine RBC NONE, Urine WBC 2-5 , Urine Squamous Epithelial Cells 2-5, Urine Crystals PRESENTH, Urine Calcium Oxalate Crystals MODERATEH, Urine Bacteria MODERATEH, Urine Casts NONE, Urine Mucus MODERATEH, Urine Culture Indicated NO Assessment/Plan Assessment/Plan Admission Diagonsis Epigastric abdominal pain Acute cholecystitis cholelithiasis Admission Status: Observation Assessment/Plan Epigastric abdominal pain Acute cholecystitis with cholelithiasis Patient with sludge and possible stones and some pericholecystic fluid and elevated white blood cell count. Feel his gallbladder is most likely cause. Patient was when risk and benefits of laparoscopic cholecystectomy with intraoperative cholangiogram possible open all other indicated procedures. Patient understands and wishes to proceed. Patient nothing by mouth at this time. Patient to or today. YANY PACE DO Apr 01, 2018 09:44
[2018-04-01] MEDS ORDERED: ceFAZolin 2 GM IV Premixed 50 ML IV NR (09:45)
[2018-04-01] MEDS ORDERED: metroNIDAZOLE 500MG/100ML IVPB IV NR (09:45)
[2018-04-01 12:00] VITALS: BP 144/87
[2018-04-01] MEDS ORDERED: LIDOCAINE 1% INJ 20 ML 20 ML VIAL ONE (12:19)
[2018-04-01] MEDS ORDERED: BUPIVACAINE 0.5% 30 ML (SENSORCAINE) VIAL ONE (12:19)
[2018-04-01] MEDS ORDERED: FAMOTIDINE 20MG/2ML IV (PEPCID) ONE (12:37)
[2018-04-01] MEDS: LACTATED RINGERS 1,000 ML IV PRN ×2 (12:52→14:35)
[2018-04-01] MEDS: PIPERACILLIN/TAZO 4.5 GM/NS 100 ML IV SCH ×4 (13:54→20:38)
[2018-04-01] MEDS ORDERED: DOCU-143 PO (14:34)
[2018-04-01] MEDS ORDERED: ACHD5005 PO (14:34)
--- NOTE | 2018-04-01 14:36 | Discharge Inst-Simple/Standard ---
Discharge Inst-Standard Discharge Medications New, Converted or Re-Newed RX: RX on Chart Patient Instructions/Follow Up Plan of Care/Instructions/FU: 2 weeks Sanjeev Activity as Tolerated: No Discharge Diet: Regular Diet Other Inst to Patient Follow up Appt: Make appointment for 2 weeks. Instructions: No lifting greater than 10 pounds. No strenuous activity. May shower in 24 hours, no tub bath or soaking. Use incentive spirometer at home as directed. No Smoking Skin/Wound Care: May remove bandages. You need to leave the white strips over incision on they will fall off on their own. Symptoms to Report: Appetite Changes, Extremity Discoloration, Numbness/Tingling, Swelling Increased , Bleeding Excessive, Eyesight Changes, Pain Increased, Urine Color Change, Constipation(Persistent), Fever over 101 degree F, Pain/Pressure in chest, Urinating Difficulty, Cough Up/Vomit Blood, Heart Beat Irreg/Pounding, Pain/ Pressure in jaw, Vaginal Bleeding Increase, Cramps in feet or legs, Lightheadedness, Pain/Pressure in shoulder, Diarrhea(Persistent), Memory Changes Suddenly, Questions/Concerns, Weight gain consecutive days, Dizziness/ Fainting, Nausea/Vomiting, Shortness of Breath, Weight gain over 2 pounds. If eyes or skin turn yellow notify physician. If questions or concerns contact your physician Or seek help at emergency department. YANY HUDSON DO Apr 01, 2018 14:36
--- NOTE | 2018-04-01 14:57 | Progress Note-Post Operative ---
Post-Operative Progess Note Surgeon (s)/Bank Advisor (s) Surgeon YANY HUDSON DO Bank Advisor: Dr. Rogel Pre-Operative Diagnosis acute cholecystitis, cholelithiasis Post-Operative Diagnosis same Procedure & Operative Findings Date of Procedure 04/01/18 Procedure Performed/Findings lap asya c ioc Anesthesia Type gen Estimated Blood Loss Estimated blood loss (mL): min Specimens/Packing Specimens Removed gallbladder YANY HUDSON DO Apr 01, 2018 14:57
[2018-04-01] MEDS ORDERED: PROMETHAZINE INJ 25 MG/ML (PHENERGAN) AMP IVP ONE (15:00)
[2018-04-01] MEDS ORDERED: ONDANSETRON 4 MG/2 ML (SDV) Z0FRAN IVP PRN (15:00)
[2018-04-01] MEDS ORDERED: KETOROLAC 30 MG/ML VIAL IVP ONE (15:00)
[2018-04-01] MEDS ORDERED: MEPERIDINE (DEMEROL) INJ 50 MG/ML IVP ONE (15:00)
[2018-04-01 16:00] VITALS: BP 135/92
--- NOTE | 2018-04-01 16:17 | Diagnostic Imaging Report ---
INDICATION: Laparoscopic cholecystectomy, abdominal pain. TECHNIQUE: Intraoperative fluoroscopy was used for the operative cholangiogram. FINDINGS: The common bile duct does not appear dilated. There is no overt filling defect in the common duct with contrast passing to the duodenum without obstruction. A small amount of reflux into the pancreatic duct is noted. 20 seconds of fluoroscopy time was used in Surgery. IMPRESSION: The intraoperative cholangiogram demonstrates no evidence of common duct stone or biliary obstruction. Dictated by: Dictated on workstation # [id number]
[2018-04-01] MEDS: HYDROcodone/APAP 5 MG/325 MG (LORTAB) TAB PO PRN ×2 (19:01→22:24)
[2018-04-01 19:32] VITALS: BP 144/90
--- NOTE | 2018-04-01 23:40 | OPERATIVE REPORT ---
DATE OF SERVICE: 04/01/2018 PREOPERATIVE DIAGNOSIS: Acute cholecystitis, cholelithiasis. POSTOPERATIVE DIAGNOSIS: Acute cholecystitis, cholelithiasis. PROCEDURE: Laparoscopic cholecystectomy with intraoperative cholangiogram. SURGEON: Yany Pace DO VP INTEGRITY: Dr. Rogel, assisted in retraction, dissection and closure. ESTIMATED BLOOD LOSS: Minimal. COMPLICATIONS: None. INDICATIONS: The patient is a 27-year-old male who presented with epigastric abdominal pain. His workup demonstrate cholelithiasis with some pericholecystic fluid and elevated white blood cell count and suggestive of acute cholecystitis. The patient understands risks and benefits of procedure and wished to proceed with procedure. Consent was signed on the chart. DESCRIPTION OF PROCEDURE: The patient was taken to the operating suite, was prepped and draped in sterile fashion. Surgical pause was performed. Scot technique was used to enter the abdomen. A 0 Vicryl was placed in a [id number] fashion on the fascial opening for closure at the end. The balloon trocar was inserted in the abdomen and pneumoperitoneum was achieved. Under direct visualization of the laparoscope, a 5 mm trocar was then placed in the subxiphoid region and two 5 mm trocars were placed in the right upper quadrant. The gallbladder was grasped, elevated. There were some adhesions which had to be taken down and this was done with blunt and some cautery dissection. The gallbladder, cystic duct and cystic artery were then dissected out. Clips were placed on the proximal and distal portion of the cystic artery and distal portion of the cystic duct. The duct was then partially transected. Arrow catheter was inserted in the duct and cholangiogram was then performed. There were no filling defects. Contrast made its way into the duodenum without difficulty. The Arrow catheter was then removed. Clips were placed on the proximal portion of the cystic duct. The duct and artery were then transected completely. Hook cautery used to dissect the gallbladder from gallbladder fossa achieving hemostasis. Once removed, it was placed in an Endobag and removed through the 12 mm trocar site. The abdomen was then irrigated with copious amounts of irrigation and suctioned. Hemostasis had been achieved. The abdomen was inspected. There was a right inguinal hernia that did have some fat stuck through it. No other pathology was noted. The abdomen was then desufflated after the trocars were removed. The 0 Vicryl that was placed on the fascia in a [id number] fashion was then tied. The skin was then closed using 4-0 Monocryl in subcuticular fashion. The abdomen was then washed and dried and Skin Affix was then placed over the incisions. The patient tolerated procedure well without any complications and taken to recovery room in stable condition. Job ID: [id number] DocumentID: [id number] Dictated Date: 04/01/2018 16:20:33 [employer] Date: 04/01/2018 23:39:34 Dictated By: YANY PACE DO
--- NOTE | 2018-04-02 07:56 | Anesthesia-General Post-Op ---
General Patient Condition Mental Status/LOC: Same as Preop Cardiovascular: Satisfactory Nausea/Vomiting: Absent Respiratory: Satisfactory Pain: Controlled Complications: Absent Post Op Complications Complications None Follow Up Care/Instructions Patient Instructions None needed. Anesthesia/Patient Condition Patient Condition Patient is doing well, no complaints, stable vital signs, no apparent adverse anesthesia problems. No complications reported per nursing. D/C home per [facility] Criteria: Yes JAIRO RIZZO CRNA Apr 02, 2018 07:56
--- OUTSIDE RECORDS SUMMARY | 2018-04-08 11:25 | XMS REPORT | Continuity of Care Document ---
Author Author [facility] Organization [facility] Address Unknown Phone Unavailable Allergies Active Description Code Type Severity Reaction Onset Reported/Identified Relationship to Patient Clinical Status Yes STEROIDS STEROIDS Mild N/A 12/05/2008 Yes Sulfa (Sulfonamide Antibiotics) [id number] Drug Allergy Mild N/A 2008 Medications There [...] ACCIDENT NOS 11/20/2013 JEREMÍAS STARK Ot V06.1 [id number], COMBINED [ 11/21/2013 JEREMÍAS STARK Ot 998.11 [...] Z88.8 ALLERGY STATUS TO OTH DRUG/MEDS/BIOL SUB 04/08/2018 YANY HUDSON DO Ot E11.9 TYPE 2 DIABETES MELLITUS WITHOUT COMPLIC 04/08/2018 YANY HUDSON DO Ot E66.01 MORBID (SEVERE) OBESITY DUE TO EXCESS CA 04/08/2018 YANY HUDSON DO Ot G47.30 SLEEP APNEA, UNSPECIFIED 04/08/2018 YANY HUDSON DO Ot I10 ESSENTIAL (PRIMARY) HYPERTENSION 04/08/2018 YANY HUDSON DO Ot J45.909 UNSPECIFIED ASTHMA, UNCOMPLICATED 04/08/2018 YANY HUDSON DO Ot K21.9 GASTRO-ESOPHAGEAL REFLUX DISEASE WITHOUT 04/08/2018 YANY HUDSON DO Ot K80.10 CALCULUS OF GALLBLADDER W CHRONIC CHOLEC 04/08/2018 YANY HUDSON DO, Ot Z68.43 BODY MASS INDEX (BMI) 50-59.9 , ADULT 04/08/2018 YANY HUDSON DO Ot Z79.82 [facility] (CURRENT) USE OF ASPIRIN 04/08/2018 YANY HUDSON DO Ot 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 Results Test [...] urinalysis with reflex to culture NO NRG Complete blood count (CBC) with automated white blood cell (WBC) differential - 04/01/18 02:33 Blood leukocytes automated count (number/volume) 12.9 10*3/uL 4.3-11.0 Blood erythrocytes automated count (number/volume) 5.39 10*6/uL 4.35-5.85 Venous blood hemoglobin measurement (mass/volume) 15.8 g/dL 13.3-17.7 Blood hematocrit (volume fraction) 46 % 40-54 Automated erythrocyte mean corpuscular volume 85 [foz_us] 80-99 Automated erythrocyte mean corpuscular hemoglobin (mass per erythrocyte) 29 pg 25-34 Automated erythrocyte mean corpuscular hemoglobin concentration measurement ( mass/volume) 35 g/dL 32-36 Automated erythrocyte distribution width ratio 13.9 % 10.0-14.5 Automated blood platelet count (count/volume) 298 10*3/uL 130-400 Automated blood platelet mean volume measurement 11.8 [foz_us] 7.4-10.4 Automated blood neutrophils/100 leukocytes 64 % 42-75 Automated blood lymphocytes/100 leukocytes 28 % 12-44 Blood monocytes/100 leukocytes 7 % 0-12 Automated blood eosinophils/100 leukocytes 1 % 0-10 Automated blood basophils/100 leukocytes 0 % 0-10 Blood neutrophils automated count (number/volume) 8.3 10*3 1.8-7.8 Blood lymphocytes automated count (number/volume) 3.6 10*3 1.0-4.0 Blood monocytes automated count (number/volume) 0.9 10*3 0.0-1.0 Automated eosinophil count 0.1 10*3/uL 0.0-0.3 Automated blood basophil count (count/volume) 0.0 10*3/uL 0.0-0.1 Comprehensive metabolic panel - 04/01/18 02:33 Serum or plasma sodium measurement (moles/volume) 141 mmol/L 135-145 Serum or plasma potassium measurement (moles/volume) 3.9 mmol/L 3.6-5.0 Serum or plasma chloride measurement (moles/volume) 105 mmol/L 98-107 Carbon dioxide 22 mmol/L 21-32 Serum or plasma anion gap determination (moles/volume) 14 mmol/L 5-14 Serum or plasma urea nitrogen measurement (mass/volume) 12 mg/dL 7-18 Serum or plasma creatinine measurement (mass/volume) 1.10 mg/dL 0.60-1.30 Serum or plasma urea nitrogen/creatinine mass ratio 11 NRG Serum or plasma creatinine measurement with calculation of estimated glomerular filtration rate > NRG Serum or plasma glucose measurement (mass/volume) 110 mg/dL 70-105 Serum or plasma calcium measurement (mass/volume) 9.5 mg/dL 8.5-10.1 Serum or plasma total bilirubin measurement (mass/volume) 0.5 mg/dL 0.1-1.0 Serum or plasma alkaline phosphatase measurement (enzymatic activity/volume) 62 U/L 40-136 Serum or plasma aspartate aminotransferase measurement (enzymatic activity/ volume) 16 U/L 5-34 Serum or plasma alanine aminotransferase measurement (enzymatic activity/volume ) 21 U/L 0-55 Serum or plasma protein measurement (mass/volume) 7.9 g/dL 6.4-8.2 Serum or plasma albumin measurement (mass/volume) 4.2 g/dL 3.2-4.5 CALCIUM CORRECTED 9.3 mg/dL 8.5-10.1 Lipase - 04/01/18 02:33 Lipase 33 U/L 8-78 Complete urinalysis with reflex to culture - 04/01/18 03:54 Urine color determination YELLOW NRG Urine clarity determination CLEAR NRG Urine pH measurement by test strip 5 5-9 Specific gravity of urine by test strip 1.030 1.016- 1.022 Urine protein assay by test strip, semi-quantitative 3+ NEGATIVE Urine glucose detection by automated test strip NEGATIVE NEGATIVE Erythrocytes detection in urine sediment by light microscopy NEGATIVE NEGATIVE Urine ketones detection by automated test strip 1+ NEGATIVE Urine nitrite detection by test strip NEGATIVE NEGATIVE Urine total bilirubin detection by test strip 1+ NEGATIVE Urine urobilinogen measurement by automated test strip (mass/volume) 4 mg/dL NORMAL Urine leukocyte esterase detection by dipstick 1+ NEGATIVE Automated urine sediment erythrocyte count by microscopy (number/high power field) NONE NRG Automated urine sediment leukocyte count by microscopy (number/high power field ) [HPF] NRG Bacteria detection in urine sediment by light microscopy MODERATE NRG Squamous epithelial cells detection in urine sediment by light microscopy 2-5 NRG Crystals detection in urine sediment by light microscopy PRESENT NRG Casts detection in urine sediment by light microscopy NONE NRG Mucus detection in urine sediment by light microscopy MODERATE NRG Complete urinalysis with reflex to culture NO NRG Calcium oxalate crystals detection in urine sediment by light microscopy MODERATE NRG Methicillin resistant Staphylococcus aureus (MRSA) screening culture - 10:01 Methicillin resistant Staphylococcus aureus (MRSA) screening culture NEG NRG Capillary blood glucose measurement by glucometer (mass/volume) - 04/01/18 12: 23 Capillary blood glucose measurement by glucometer (mass/volume) 95 mg/dL 70-110 Encounters ACCT No. Visit Date/Time Discharge Status Pt. Type Provider Facility Loc./Unit Complaint [id number] 04/01/2018 06:12:00 04/01/2018 22:40:00 [facility] [id number] 10/25/2017 13:18:00 10/25/2017 16:57:00 DIS Emergency ALBERTINA MORIN, TOBY Lopes [facility] ER SICK X1 WEEK,CHILLS, DIZZY, [id number] 11/22/2013 12:38:00 11/22/2013 13:27:00 DIS Emergency OMERO ISAACS APRN [facility] ER WOUND CHECK [id number] 11/20/2013 22:15:00 11/21/2013 01:23:00 DIS Emergency JEREMÍAS STARK [facility] ER L MIDDLE FINGER INJ [id number] 11/20/2013 17:16:00 11/20/2013 19:30:00 DIS Emergency JEREMÍAS STARK [facility] ER L HAND INJ [id number] 04/01/2013 10:25:00 04/01/2013 23:59:59 CLS Outpatient [id number] 03/01/2013 08:39:00 03/01/2013 23:59:59 CLS Outpatient
== END 2018-04-01 22:40 | disposition home or self-care (01) ==
LOC: EDUNIT# 02:00 → ER 02:02 → 4TH 05:30 → UNDOADMOB 05:30 → 4TH 06:12 → SDC 06:12 → 4TH 06:12 → UNDODISOB 22:40 → SDC 22:40
PROVIDERS: ATTEND Surgery
DX: K80.10 Calculus of gallbladder with chronic cholecystitis without obstruction (principal); E11.9 Type 2 diabetes mellitus without complications; I10 Essential (primary) hypertension; J45.909 Unspecified asthma, uncomplicated; G47.30 Sleep apnea, unspecified; K21.9 Gastro-esophageal reflux disease without esophagitis; E66.01 Morbid (severe) obesity due to excess calories; Z68.43 Body mass index [BMI] 50.0-59.9, adult; Z79.82 Long term (current) use of aspirin; Z79.84 Long term (current) use of oral hypoglycemic drugs
CPT/HCPCS: 36415; 74019; 76705; 80053; 81000; 82962; 83690; 85025; 87081; 88304; 96361; 96374; 96375; G0378

== ENCOUNTER 2018-06-14 21:07 | Emergency (ER) | payer SELFPAY ==
[~2018-06-14] VITALS: Ht 172.7 cm; Wt 174.6 kg
[~2018-06-14 21:07] MED LIST changes: +ACHD5005 PO; +ASPI-808 PO; +DOCU-143 PO; +METF-397 PO
--- OUTSIDE RECORDS SUMMARY | 2018-06-14 21:13 | XMS REPORT | Continuity of Care Document ---
Author Author [facility] Organization [facility] Address Unknown Phone Unavailable Allergies Active Description Code Type Severity Reaction Onset Reported/Identified Relationship to Patient Clinical Status Yes STEROIDS STEROIDS Mild N/A 12/05/2008 Yes Sulfa (Sulfonamide Antibiotics) [id number] Drug Allergy Mild N/A 2008 Medications There [...] ACCIDENT NOS 11/20/2013 JEREMÍAS STARK Ot V06.1 [id number], COMBINED [ 11/21/2013 JEREMÍAS STARK Ot 998.11 HEMOR COMPLIC A PROCEDURE 11/22/2013 OMERO ISAACS APRN Ot V58.31 ENCOUNTER FOR CHANGE OR REMOVAL OF SURGI 10/25/2017 ALBERTINA MORIN, TOBY Lopes Ot E11.65 TYPE 2 DIABETES MELLITUS WITH HYPERGLYCE 10/25/2017 TOBY ENG MD Ot E66.01 MORBID (SEVERE) OBESITY DUE TO EXCESS CA 10/25/2017 TOBY ENG MD Ot G47.30 SLEEP APNEA, UNSPECIFIED 10/25/2017 TOBY ENG MD Ot I10 ESSENTIAL (PRIMARY) HYPERTENSION 10/25/2017 TOBY NEG MD Ot J45.909 UNSPECIFIED ASTHMA, UNCOMPLICATED 10/25/2017 TOBY ENG MD Ot R00.2 PALPITATIONS 10/25/2017 TOBY ENG MD Ot R11.2 NAUSEA WITH VOMITING, UNSPECIFIED 10/25/2017 TOBY ENG MD Ot R42 DIZZINESS AND GIDDINESS 10/25/2017 TOBY ENG MD Ot Z68.43 BODY MASS INDEX (BMI) 50-59.9 , ADULT 10/25/2017 TOBY ENG MD Ot Z82.49 FAMILY HX OF ISCHEM HEART DIS AND OTH DI 10/25/2017 TOBY ENG MD Ot Z88.2 ALLERGY STATUS TO SULFONAMIDES STATUS 10/25/2017 TOBY ENG MD Ot Z88.8 ALLERGY STATUS TO OTH DRUG/MEDS/BIOL SUB 10/27/2017 TOBY ENG MD Ot E11.65 TYPE 2 DIABETES MELLITUS WITH HYPERGLYCE 10/27/2017 TOBY ENG MD Ot E66.01 MORBID (SEVERE) OBESITY DUE TO EXCESS CA 10/27/2017 TOBY ENG MD Ot G47.30 SLEEP APNEA, UNSPECIFIED 10/27/2017 TOBY ENG MD Ot I10 ESSENTIAL (PRIMARY) HYPERTENSION 10/27/2017 TOBY ENG MD Ot J45.909 UNSPECIFIED ASTHMA, UNCOMPLICATED 10/27/2017 TOBY ENG MD Ot R00.2 PALPITATIONS 10/27/2017 TOBY ENG MD Ot R11.2 NAUSEA WITH VOMITING, UNSPECIFIED 10/27/2017 TOBY ENG MD Ot R42 DIZZINESS AND GIDDINESS 10/27/2017 TOBY ENG MD Ot Z68.43 BODY MASS INDEX (BMI) 50-59.9 , ADULT 10/27/2017 TOBY ENG MD Ot Z82.49 FAMILY HX OF ISCHEM HEART DIS AND OTH DI 10/27/2017 TOBY ENG MD Ot Z88.2 ALLERGY STATUS TO SULFONAMIDES STATUS 10/27/2017 TOBY ENG MD Ot Z88.8 ALLERGY STATUS TO OTH DRUG/MEDS/BIOL SUB 03/08/2018 Ot E11.9 TYPE 2 DIABETES MELLITUS WITHOUT COMPLIC 03/08/2018 Ot E66.01 MORBID ( SEVERE) OBESITY DUE TO EXCESS CA 03/08/2018 Ot I10 ESSENTIAL ( PRIMARY) HYPERTENSION 03/08/2018 Ot J45.909 UNSPECIFIED ASTHMA, UNCOMPLICATED 03/08/2018 Ot M24.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 ARTICULAR CARTILAGE DISORDERS, RIG 03/08/2018 Ot M25.511 PAIN IN RIGHT SHOULDER 03/08/2018 Ot Z88.2 ALLERGY STATUS TO SULFONAMIDES STATUS 03/08/2018 Ot Z88.8 ALLERGY STATUS TO OTH DRUG/MEDS/BIOL SUB 03/08/2018 Ot Z90.49 ACQUIRED ABSENCE OF OTHER SPECIFIED PART 03/08/2018 Ot Z90.89 ACQUIRED ABSENCE OF OTHER ORGANS 04/01/2018 YANY HUDSON DO Ot E11.9 TYPE 2 DIABETES MELLITUS WITHOUT COMPLIC 04/01/2018 YANY HUDSON DO Ot E66.01 MORBID (SEVERE) OBESITY DUE TO EXCESS CA 04/01/2018 YANY HUDSON DO Ot G47.30 SLEEP APNEA, UNSPECIFIED 04/01/2018 YANY HUDSON DO Ot I10 ESSENTIAL (PRIMARY) HYPERTENSION 04/01/2018 YANY HUDSON DO Ot J45.909 UNSPECIFIED ASTHMA, UNCOMPLICATED 04/01/2018 YANY HUDSON DO Ot K21.9 GASTRO-ESOPHAGEAL REFLUX DISEASE WITHOUT 04/01/2018 YANY HUDSON DO Ot K80.10 CALCULUS OF GALLBLADDER W CHRONIC CHOLEC 04/01/2018 YANY HUDSON DO Ot Z68.43 BODY MASS INDEX (BMI) 50-59.9 , ADULT 04/01/2018 YANY HUDSON DO Ot Z79.82 LONG-TERM (CURRENT) USE OF ASPIRIN 04/01/2018 YANY HUDSON DO Ot 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 04/08/2018 YANY HUDSON DO Ot E11.9 TYPE [...] GALLBLADDER W CHRONIC CHOLEC 04/08/2018 YANY HUDSON DO Ot Z68.43 BODY MASS INDEX (BMI) 50-59.9 , ADULT 04/08/2018 YANY HUDSON DO Ot Z79.82 LONG-TERM (CURRENT) USE OF ASPIRIN 04/08/2018 YANY HUDSON DO Ot Z79.84 LONG-TERM (CURRENT) USE OF ORAL HYPOGLYC 04/09/2018 YANY HUDSON DO Ot E11.9 TYPE 2 DIABETES MELLITUS WITHOUT COMPLIC 04/09/2018 YANY HUDSON DO Ot E66.01 MORBID (SEVERE) OBESITY DUE TO EXCESS CA 04/09/2018 YANY HUDSON DO Ot G47.30 SLEEP APNEA, UNSPECIFIED 04/09/2018 YANY HUDSON DO Ot I10 ESSENTIAL (PRIMARY) HYPERTENSION 04/09/2018 YANY HUDSON DO Ot J45.909 UNSPECIFIED ASTHMA, UNCOMPLICATED 04/09/2018 YANY HUDSON DO Ot K21.9 GASTRO-ESOPHAGEAL REFLUX DISEASE WITHOUT 04/09/2018 YANY HUDSON DO Ot K80.10 CALCULUS OF GALLBLADDER W CHRONIC CHOLEC 04/09/2018 YANY HUDSON DO Ot Z68.43 BODY MASS INDEX (BMI) 50-59.9 , ADULT 04/09/2018 YANY HUDSON DO Ot Z79.82 LONG-TERM (CURRENT) USE OF ASPIRIN 04/09/2018 YANY HUDSON DO Ot Z79.84 LONG-TERM (CURRENT) USE OF ORAL HYPOGLYC 04/10/2018 YANY HUDSON DO Ot E11.9 TYPE 2 DIABETES MELLITUS WITHOUT COMPLIC 04/10/2018 YANY HUDSON DO Ot E66.01 MORBID (SEVERE) OBESITY DUE TO EXCESS CA 04/10/2018 YANY HUDSON DO Ot G47.30 SLEEP APNEA, UNSPECIFIED 04/10/2018 YANY HUDSON DO Ot I10 ESSENTIAL (PRIMARY) HYPERTENSION 04/10/2018 YANY HUDSON DO Ot J45.909 UNSPECIFIED ASTHMA, UNCOMPLICATED 04/10/2018 YANY HUDSON DO Ot K21.9 GASTRO-ESOPHAGEAL REFLUX DISEASE WITHOUT 04/10/2018 YANY HUDSON DO Ot K80.10 CALCULUS OF GALLBLADDER W CHRONIC CHOLEC 04/10/2018 YANY HUDSON DO Ot Z68.43 BODY MASS INDEX (BMI) 50-59.9 , ADULT 04/10/2018 YANY HUDSON DO Ot Z79.82 LONG-TERM (CURRENT) USE OF ASPIRIN 04/10/2018 YANY HUDSON DO Ot Z79.84 LONG-TERM (CURRENT) USE OF ORAL HYPOGLYC Procedures There [...] Status Pt. Type Provider Facility Loc./Unit Complaint [id number] 04/01/2018 06:12:00 04/01/2018 22:40:00 DIS Outpatient YANY HUDSON DO [facility] SDC ACUTE CHOLEYCYSTITIS [id number] 10/25/2017 13:18:00 10/25/2017 16:57:00 DIS Emergency ALBERTINA MORIN, TOBY Lopes [facility] ER SICK X1 WEEK,CHILLS, DIZZY, [id number] 11/22/2013 12:38:00 11/22/2013 13:27:00 DIS Emergency OMERO ISAACS APRN [facility] ER WOUND CHECK [id number] 11/20/2013 22:15:00 11/21/2013 01:23:00 DIS Emergency JEREMÍAS STARK [facility] ER L MIDDLE FINGER INJ [id number] 11/20/2013 17:16:00 11/20/2013 19:30:00 DIS Emergency JEREMÍAS STARK [facility] ER L HAND INJ [id number] 04/01/2013 10:25:00 04/01/2013 23:59:59 CLS Outpatient [id number] 03/01/2013 08:39:00 03/01/2013 23:59:59 CLS Outpatient [id number] 03/08/2018 10:49:00 Document Registration
[2018-06-14] MEDS ORDERED: DEXAMETHASONE 10 MG/ML (DECADRON) 1 ML VIAL IM ONE (22:30)
--- NOTE | 2018-06-14 22:39 | ED Cough/URI ---
General Chief Complaint: Cough/Cold/Flu Symptoms Stated Complaint: COUGH Nursing Triage Note: Pt reports being exposed to black mold and then developing a cough after moving out. Pt c/o dizziness and SOB. Pt reports symptoms persisting for one month. History of Present Illness Date Seen by Provider: Jun 14, 2018 Time Seen by Provider: 22:05 Initial Comments 27-year-old male presents for cough and congestion. He states that he has been living in a home with black mold for the last 4 years, approximately 2 weeks ago his landlords evicted him because he is not paying rent. He reports that he refused to pay rent since they were not cleaning the black mold. He reports occasionally being sick with respiratory issues while living in the home but he has become significantly worse since removing himself from the home. He has a history of allergies and asthma but is not currently medicated for either. Timing/Duration: intermittent Severity/Quality: mild Prior Episodes/Possible Cause: occasional episodes, allergen exposure (black mold) Associated Symptoms: cough, dizziness, lightheadedness, shortness of breath Allergies and Home Medications Allergies Coded Allergies: Sulfa (Sulfonamide Antibiotics) (Unverified Allergy, Mild, 12/05/08) prednisone (Verified Adverse Reaction, Unknown, vomiting, 06/14/18) Home Medications Azithromycin 250 Mg Tablet, 250 MG PO UD TAKE 2 TABLETS TODAY, THEN TAKE 1 TABLET DAILY FOR 4 MORE DAYS Prescribed by: YOANA BURCIAGA on 06/14/18 2317 Docusate Sodium 100 Mg Capsule, 100 MG PO DAILY Prescribed by: YANY HUDSON on 04/01/18 1434 Hydrocodone Bit/Acetaminophen 1 Tab Tab, 1 TAB PO Q4H PRN Prescribed by: YANY HUDSON on 04/01/18 1434 Metformin HCl 500 Mg Tablet, 500 MG PO DAILY PRN for BS>200, (Reported) TAKES FOR WEIGHT LOSS Patient Home Medication List Home Medication List Reviewed: Yes Review of Systems Review of Systems Constitutional: no symptoms reported, see HPI Respiratory: see HPI, cough Immunological/Allergic: see HPI, mold allergy All Other Systems Reviewed Negative Unless Noted: Yes Past Aeivcdn-Krpedy-Fqtdry Hx Past Med/Social Hx: Reviewed Nursing Past Med/Soc Hx Patient Social History Alcohol Use: Denies Use Recreational Drug Use: Yes Drug of Choice: marijuana 2nd Hand Smoke Exposure: Yes Recent Foreign Travel: No Contact w/Someone Who Travel: No Recent Infectious Disease Expo: No Recent Hopitalizations: No Immunizations Up To Date Tetanus Booster (TDap): Less than 5yrs Past Medical History Surgeries: Yes Appendectomy, Tonsillectomy Respiratory: Yes Asthma, Sleep Apnea Cardiac: Yes Hypertension Neurological: No Reproductive Disorders: No Genitourinary: No Gastrointestinal: No Musculoskeletal: No Endocrine: Yes (morbid obesity) Diabetes, Non-Insulin dep HEENT: No Cancer: No Psychosocial: No Integumentary: No Blood Disorders: No Family Medical History Heart Disease Physical Exam Vital Signs - First Documented 06/14/18 21:20 Temp 98.6 Pulse 89 Resp 16 B/P (MAP) 147/101 (116) Pulse Ox 96 O2 Delivery Room Air Capillary Refill : Less Than 3 Seconds Height: 5'8.00" Weight: 385lbs. 0.0oz. 174.658587zs; 58.5 BMI Method:Stated General Appearance: WD/WN, no apparent distress Eyes: Bilateral Eye Normal Inspection, Bilateral Eye PERRL, Bilateral Eye EOMI HEENT: PERRL/EOMI, normal ENT inspection, TMs normal, pharynx normal Neck: full range of motion, supple, normal inspection Respiratory: chest non-tender, lungs clear, normal breath sounds Cardiovascular: normal peripheral pulses, regular rate, rhythm Gastrointestinal: normal bowel sounds, non tender, soft Extremities: normal range of motion, non-tender, normal inspection Neurologic/Psychiatric: no motor/sensory deficits, alert, normal mood/affect, oriented x 3 Skin: normal color, warm/dry Lymphatic: no adenopathy Progress/Results/Core Measures Suspected Sepsis Recent Fever Within 48 Hours: No Infection Criteria Present: None New/Unexplained Altered Menta: No Sepsis Screen: No Definite Risk SIRS Temperature:98.6 Pulse: 89 Respiratory Rate: 16 Laboratory Tests 06/14/18 22:40: White Blood Count 13.1H Blood Pressure 147 /101 Mean: 116 Laboratory Tests 06/14/18 22:40: Creatinine 0.98, Platelet Count 297, Total Bilirubin 0.8 Results/Orders Lab Results Laboratory Tests Test 06/14/18 22:40 Range/Units White Blood Count 13.1 H 4.3-11.0 10^3/uL Red Blood Count 5.45 4.35-5.85 10^6/uL Hemoglobin 15.9 13.3-17.7 G/DL Hematocrit 47 40-54 % Mean Corpuscular Volume 86 80-99 FL Mean Corpuscular Hemoglobin 29 25-34 PG Mean Corpuscular Hemoglobin Concent 34 32-36 G/DL Red Cell Distribution Width 14.2 10.0-14.5 % Platelet Count 297 130-400 10^3/uL Mean Platelet Volume 11.5 H 7.4-10.4 FL Neutrophils (%) (Auto) 62 42-75 % Lymphocytes (%) (Auto) 27 12-44 % Monocytes (%) (Auto) 9 0-12 % Eosinophils (%) (Auto) 2 0-10 % Basophils (%) (Auto) 0 0-10 % Neutrophils # (Auto) 8.1 H 1.8-7.8 X 10^3 Lymphocytes # (Auto) 3.5 1.0-4.0 X 10^3 Monocytes # (Auto) 1.2 H 0.0-1.0 X 10^3 Eosinophils # (Auto) 0.2 0.0-0.3 10^3/uL Basophils # (Auto) 0.0 0.0-0.1 10^3/uL Sodium Level 140 135-145 MMOL/L Potassium Level 3.7 3.6-5.0 MMOL/L Chloride Level 105 98-107 MMOL/L Carbon Dioxide Level 23 21-32 MMOL/L Anion Gap 12 5-14 MMOL/L Blood Urea Nitrogen 15 7-18 MG/DL Creatinine 0.98 0.60-1.30 MG/DL Estimat Glomerular Filtration Rate > 60 BUN/Creatinine Ratio 15 Glucose Level 93 70-105 MG/DL Calcium Level 9.8 8.5-10.1 MG/DL Corrected Calcium 9.5 8.5-10.1 MG/DL Total Bilirubin 0.8 0.1-1.0 MG/DL Aspartate Amino Transf (AST/SGOT) 29 5-34 U/L Alanine Aminotransferase (ALT/SGPT) 32 0-55 U/L Alkaline Phosphatase 63 40-136 U/L C-Reactive Protein High Sensitivity 1.07 H 0.00-0.50 MG/DL Total Protein 8.6 H 6.4-8.2 GM/DL Albumin 4.4 3.2-4.5 GM/DL My Orders Orders - YOANA BURCIAGA Chest Pa/Lat (2 View) (06/14/18 21:53) Cbc With Automated Diff (06/14/18 22:03) Comprehensive Metabolic Panel (06/14/18 22:03) Hs C Reactive Protein (06/14/18 22:03) Dexamethasone Injection (Decadron Inject (06/14/18 22:30) Rx-Albuterol Inhaler (Rx-Proair) (06/14/18 23:02) Medications Given in ED Current Medications Medications Dose Ordered Sig/Juancarlos Route Start Time Stop Time Status Last Admin Dose Admin Dexamethasone Sodium Phosphate 10 mg ONCE ONCE IM 06/14/18 22:30 06/14/18 22:31 DC 06/14/18 22:47 10 MG Vital Signs/I&O 06/14/18 06/14/18 21:20 22:04 Temp 98.6 Pulse 89 Resp 16 B/P (MAP) 147/101 (116) Pulse Ox 96 O2 Delivery Room Air Room Air Capillary Refill : Less Than 3 Seconds Blood Pressure Mean: 116 Diagnostic Imaging Diagonstic Imaging: Xray Plain Films/CT/US/NM/MRI: chest Comments No acute abnormalities appreciated, compared with chest x-ray from September 2017, no interval changes. Will be over read by radiology. Reviewed: Reviewed by Me Departure Impression Primary Impression: Contact with or exposure to mold Additional Impression: Bronchitis Disposition: 01 HOME, SELF-CARE Condition: Improved Departure-Patient Inst. Decision time for Depature: 23:00 Referrals: [facility] (PCP/Family) Primary Care Physician Patient Instructions: Acute Bronchitis, Adult (DC), Allergy to Mold, Cough, Adult (DC), How to Use Your Metered Dose Inhaler (Adults) Add. Discharge Instructions: Use your inhaler 2 puffs every 4-6 hours as needed. Take antibiotic as prescribed. Increase water intake. Follow-up with your primary care provider in 2-3 days if symptoms are not improving or worsen. You may use Tylenol 650 mg alternating with ibuprofen 600 mg every 4 hours for pain or fever. Return to emergency department for difficulty breathing, chest pain, fever greater than 101 not relieved by Tylenol and ibuprofen, or new problems. All discharge instructions reviewed with patient and/or family. Voiced understanding. Scripts Azithromycin (Zithromax) 250 Mg Tablet 250 MG PO UD, #6 TAB 0 Refills TAKE 2 TABLETS TODAY, THEN TAKE 1 TABLET DAILY FOR 4 MORE DAYS Prov: YOANA BURCIAGA 06/14/18 Copy Copies To 1: SUJATHA NUGENT AMY ARNP Jun 14, 2018 22:39
[2018-06-14 22:50] LABS: BASOPHILS % (AUTO) 0 % (0-10); EOSINOPHILS # (AUTO) 0.2 10^3/uL (0.0-0.3); EOSINOPHILS % (AUTO) 2 % (0-10); HEMATOCRIT 47 % (40-54); HEMOGLOBIN 15.9 G/DL (13.3-17.7); LYMPHOCYTES # (AUTO) 3.5 X 10^3 (1.0-4.0); LYMPHOCYTES % (AUTO) 27 % (12-44); MEAN CORPUSCULAR HEMOGLOBIN 29 PG (25-34); MEAN CORPUSCULAR HGB CONC 34 G/DL (32-36); MEAN CORPUSCULAR VOLUME 86 FL (80-99); MEAN PLATELET VOLUME 11.5 FL (7.4-10.4); MONOCYTES # (AUTO) 1.2 X 10^3 (0.0-1.0); MONOCYTES % (AUTO) 9 % (0-12); NEUTROPHILS # (AUTO) 8.1 X 10^3 (1.8-7.8); NEUTROPHILS % (AUTO) 62 % (42-75); PLATELET COUNT 297 10^3/uL (130-400); RED BLOOD COUNT 5.45 10^6/uL (4.35-5.85); RED CELL DISTRIBUTION WIDTH 14.2 % (10.0-14.5); WHITE BLOOD COUNT 13.1 10^3/uL (4.3-11.0)
[2018-06-14] MEDS ORDERED: RX-ALBUTEROL INHALER (PROAIR) 8 GM IH STA (23:02)
[2018-06-14] MEDS ORDERED: AZIT250T PO (23:17)
[2018-06-14 23:21] LABS: ALANINE AMINOTRANSFERASE 32 U/L (0-55); ALBUMIN 4.4 GM/DL (3.2-4.5); ALKALINE PHOSPHATASE 63 U/L (40-136); BILIRUBIN,TOTAL 0.8 MG/DL (0.1-1.0); BUN/CREATININE RATIO 15; CALCIUM 9.8 MG/DL (8.5-10.1); CARBON DIOXIDE 23 MMOL/L (21-32); CHLORIDE 105 MMOL/L (98-107); CREATININE SERUM 0.98 MG/DL (0.60-1.30); GFR ESTIMATED > 60; GLUCOSE 93 MG/DL (70-105); POTASSIUM 3.7 MMOL/L (3.6-5.0); SODIUM 140 MMOL/L (135-145); TOTAL PROTEIN 8.6 GM/DL (6.4-8.2)
[2018-06-14 23:22] VITALS: BP 159/111
--- NOTE | 2018-06-15 06:47 | Diagnostic Imaging Report ---
INDICATION: Lower respiratory infection PA and lateral chest Heart size and pulmonary vascularity are normal. Lungs are clear. There is no effusion or pneumothorax. IMPRESSION: Negative chest Dictated by: Dictated on workstation # [id number]
== END 2018-06-14 23:22 | disposition home or self-care (01) ==
LOC: EDUNIT# 21:07 → ER 21:09
DX: J40 Bronchitis, not specified as acute or chronic (principal); J45.909 Unspecified asthma, uncomplicated; G47.30 Sleep apnea, unspecified; I10 Essential (primary) hypertension; E66.01 Morbid (severe) obesity due to excess calories; E11.9 Type 2 diabetes mellitus without complications; F12.10 Cannabis abuse, uncomplicated; Z68.43 Body mass index [BMI] 50.0-59.9, adult; Z82.49 Family history of ischemic heart disease and other diseases of the circulatory system; Z90.49 Acquired absence of other specified parts of digestive tract; Z90.89 Acquired absence of other organs; Z77.22 Contact with and (suspected) exposure to environmental tobacco smoke (acute) (chronic); Z88.2 Allergy status to sulfonamides; Z88.8 Allergy status to other drugs, medicaments and biological substances; Z79.84 Long term (current) use of oral hypoglycemic drugs; Z77.120 Contact with and (suspected) exposure to mold (toxic)
CPT/HCPCS: 36415; 71046; 80053; 85025; 86141

== ENCOUNTER → 2018-08-11 | Emergency (ER) | payer SELFPAY ==
[~2018-08-11] VITALS: Ht 172.7 cm; Wt 174.6 kg
[~2018-08-11] MED LIST changes: +AZIT250T PO; +D-ME473S38 PO; +RT-ALBUINH IH; +RT-ALBUTEROL/IPRATROPIUM 3 ML (DUONEB) VIAL INH ONE
--- NOTE | 2018-08-11 10:46 | ED Cough/URI ---
General Chief Complaint: Respiratory Problems Stated Complaint: SOB Nursing Triage Note: PT PRESENTS TO ED WITH COMPLAINTS OF SOA X2 DAYS WITH COUGH. PT STATES HE DOES HAVE ASTHMA BUT HAS NO INHALERS OR BREATHING TX. Source: patient Exam Limitations: no limitations History of Present Illness Date Seen by Provider: Aug 11, 2018 Time Seen by Provider: 10:43 Initial Comments To ER with reports of shortness of breath and wheezing for 2 days. He has a history of asthma. He's been out of his inhaler since he was here last which was on June 14. He states that he sees him to help but has not made an appointment to see them refill his inhaler. Timing/Duration: constant Severity/Quality: dry cough Prior Episodes/Possible Cause: occasional episodes Associated Symptoms: cough, shortness of breath, wheezing Allergies and Home Medications Allergies Coded Allergies: Sulfa (Sulfonamide Antibiotics) (Unverified Allergy, Mild, 12/05/08) prednisone (Verified Adverse Reaction, Unknown, vomiting, 06/14/18) Home Medications Azithromycin 250 Mg Tablet, 250 MG PO UD TAKE 2 TABLETS TODAY, THEN TAKE 1 TABLET DAILY FOR 4 MORE DAYS Prescribed by: YOANA BURCIAGA on 06/14/18 2317 Docusate Sodium 100 Mg Capsule, 100 MG PO DAILY Prescribed by: YANY HUDSON on 04/01/18 1434 Hydrocodone Bit/Acetaminophen 1 Tab Tab, 1 TAB PO Q4H PRN Prescribed by: YANY HUDSON on 04/01/18 1434 Metformin HCl 500 Mg Tablet, 500 MG PO DAILY PRN for BS>200, (Reported) TAKES FOR WEIGHT LOSS Patient Home Medication List Home Medication List Reviewed: Yes Review of Systems Review of Systems Constitutional: see HPI EENTM: see HPI Respiratory: see HPI, cough, short of breath, wheezing Cardiovascular: no symptoms reported Genitourinary: no symptoms reported Musculoskeletal: no symptoms reported Skin: no symptoms reported Psychiatric/Neurological: No Symptoms Reported Past Gcthofw-Eljsqr-Xtczdw Hx Patient Social History Alcohol Use: Rarely Uses Recreational Drug Use: No Drug of Choice: marijuana Smoking Status: Current Someday Smoker Type Used: Cigarettes 2nd Hand Smoke Exposure: Yes Recent Foreign Travel: No Contact w/Someone Who Travel: No Recent Infectious Disease Expo: No Recent Hopitalizations: No Physical Abuse: No Sexual Abuse: No Mistreated: No Fear: No Immunizations Up To Date Tetanus Booster (TDap): Less than 5yrs Past Medical History Surgeries: Yes Appendectomy, Tonsillectomy Respiratory: Yes Asthma, Sleep Apnea Cardiac: Yes Hypertension Neurological: No Reproductive Disorders: No Genitourinary: No Gastrointestinal: No Musculoskeletal: No Endocrine: Yes (morbid obesity) Diabetes, Non-Insulin dep HEENT: No Cancer: No Psychosocial: No Integumentary: No Blood Disorders: No Family Medical History Heart Disease Physical Exam Vital Signs - First Documented 08/11/18 10:07 Temp 97.0 Pulse 93 Resp 20 B/P (MAP) 132/61 (84) Pulse Ox 98 Capillary Refill : Less Than 3 Seconds Height: 5'8.00" Weight: 385lbs. 0.0oz. 174.432279ov; 58.5 BMI Method:Stated General Appearance: WD/WN, no apparent distress, obese Eyes: Bilateral Eye Normal Inspection, Bilateral Eye PERRL, Bilateral Eye EOMI HEENT: PERRL/EOMI, normal ENT inspection Respiratory: no respiratory distress, no accessory muscle use, decreased breath sounds, wheezing Gastrointestinal: non tender, soft Neurologic/Psychiatric: alert, normal mood/affect, oriented x 3 Skin: normal color, warm/dry Progress/Results/Core Measures Suspected Sepsis Recent Fever Within 48 Hours: No Infection Criteria Present: None New/Unexplained Altered Menta: No Sepsis Screen: No Definite Risk SIRS Temperature:97.0 Pulse: 93 Respiratory Rate: 20 Blood Pressure 132 /61 Mean: 84 Results/Orders My Orders Orders - OMERO ISAACS APRN Chest Pa/Lat (2 View) (08/11/18 10:42) Albuterol/Ipra Inhalation Soln (Duoneb I (08/11/18 10:45) Svn Small Volume Nebulizer (08/11/18 10:42) Vital Signs/I&O 08/11/18 10:07 Temp 97.0 Pulse 93 Resp 20 B/P (MAP) 132/61 (84) Pulse Ox 98 Capillary Refill : Less Than 3 Seconds Blood Pressure Mean: 84 Departure Impression Primary Impression: Asthma exacerbation Qualified Codes: J45.901 - Unspecified asthma with (acute) exacerbation Disposition: 01 HOME, SELF-CARE Condition: Stable Departure-Patient Inst. Decision time for Depature: 10:45 Referrals: [facility] (PCP/Family) Primary Care Physician Patient Instructions: Asthma, Adult (DC) Add. Discharge Instructions: 1. Use your inhaler as directed. Call [facility] today to make an appointment to be seen for follow-up. All discharge instructions reviewed with patient and/or family. Voiced understanding. Scripts Albuterol Sulfate (PROAIR HFA) 1 Puff Puff 2 PUFF IH Q4H PRN for WHEEZING, #1 PUFF 2 Refills 1 PUFF = 90 MCG Prov: OMERO ISAACS APRN 08/11/18 OMERO ISAACS APRN Aug 11, 2018 10:46
[2018-08-11 11:11] VITALS: BP 130/94
--- NOTE | 2018-08-11 11:12 | Diagnostic Imaging Report ---
INDICATION: Shortness of air with cough. COMPARISON: 06/14/2018. FINDINGS: There is no substantial thickening of the airways. The lung volumes are symmetric and normal. No alveolar consolidation, effusion, pneumothorax, or pneumomediastinum. IMPRESSION: No acute finding is radiographically apparent. Dictated by: Dictated on workstation # [id number]
--- OUTSIDE RECORDS SUMMARY | 2018-08-11 12:53 | XMS REPORT | Continuity of Care Document ---
Author Author [facility] Organization [facility] Address Unknown Phone Unavailable Allergies Active Description Code Type Severity Reaction Onset Reported/Identified Relationship to Patient Clinical Status Yes STEROIDS STEROIDS Mild N/A 12/05/2008 Yes Sulfa (Sulfonamide Antibiotics) [id number] Drug Allergy Mild N/A 2008 Yes prednisone [id number] Drug Allergy Unknown vomiting 06/14/2018 Medications There is no data. Problems Date [...] ACCIDENT NOS 11/20/2013 JEREMÍAS STARK Ot V06.1 [id number], COMBINED [ 11/21/2013 JEREMÍAS STARK Ot 998.11 HEMOR COMPLIC A PROCEDURE 11/22/2013 OMERO ISAACS CLOTH BOLT BANDER Ot V58.31 ENCOUNTER FOR CHANGE OR REMOVAL OF SURGI 10/25/2017 TOBY ENG MD Ot E11.65 TYPE 2 DIABETES MELLITUS WITH HYPERGLYCE 10/25/2017 TOBY ENG MD Ot E66.01 MORBID (SEVERE) OBESITY DUE TO EXCESS CA 10/25/2017 TOBY ENG MD Ot G47.30 SLEEP APNEA, UNSPECIFIED 10/25/2017 TOBY ENG MD Ot I10 ESSENTIAL (PRIMARY) HYPERTENSION 10/25/2017 TOBY ENG MD Ot J45.909 UNSPECIFIED ASTHMA, UNCOMPLICATED 10/25/2017 [...] ASPIRIN 04/01/2018 YANY HUDSON DO Ot Z79.84 LONG-TERM (CURRENT) USE OF ORAL HYPOGLYC 04/08/2018 YANY [...] ADULT 04/08/2018 YANY HUDSON DO Ot Z79.82 MINERALOGY PROFESSOR (CURRENT) USE OF ASPIRIN 04/08/2018 YANY HUDSON DO Ot Z79.84 MINERALOGY PROFESSOR (CURRENT) USE OF ORAL HYPOGLYC 04/09/2018 YANY [...] ADULT 04/09/2018 YANY HUDSON DO Ot Z79.82 MINERALOGY PROFESSOR (CURRENT) USE OF ASPIRIN 04/09/2018 YANY HUDSON DO Ot Z79.84 MINERALOGY PROFESSOR (CURRENT) USE OF ORAL HYPOGLYC 04/10/2018 YANY [...] ASPIRIN 04/10/2018 YANY HUDSON DO Ot Z79.84 MINERALOGY PROFESSOR (CURRENT) USE OF ORAL HYPOGLYC 06/14/2018 YOANA BURCIAGAP Ot E11.9 TYPE 2 DIABETES MELLITUS WITHOUT COMPLIC 06/14/2018 YOANA BURCIAGAP Ot E66.01 MORBID (SEVERE) OBESITY DUE TO EXCESS CA 06/14/2018 YOANA BURCIAGAP Ot F12.10 CANNABIS ABUSE, UNCOMPLICATED 06/14/2018 YOANA BURCIAGAP Ot G47.30 SLEEP APNEA, UNSPECIFIED 06/14/2018 YOANA BURCIAGA IT INFRASTRUCTURE CONSULTANT Ot I10 ESSENTIAL (PRIMARY) HYPERTENSION 06/14/2018 YOANA BURCIAGAP Ot J40 BRONCHITIS, NOT SPECIFIED ACUTE OR CH 06/14/2018 YOANA BURCIAGA Ot J45.909 UNSPECIFIED ASTHMA, UNCOMPLICATED 06/14/2018 YOANA BURCIAGAP Ot R05 COUGH 06/14/2018 YOANA BURCIAGA IT INFRASTRUCTURE CONSULTANT Ot Z68.43 BODY MASS INDEX (BMI) 50-59.9, ADULT 06/14/2018 YOANA BURCIAGA IT INFRASTRUCTURE CONSULTANT Ot Z77.120 CONTACT WITH AND (SUSPECTED) EXPOSURE TO 06/14/2018 PATRICA, YOANA IT INFRASTRUCTURE CONSULTANT Ot Z77.22 CNTCT W AND EXPSR TO ENVIRON TOBACCO SMO 06/14/2018 PATRICA YOANA IT INFRASTRUCTURE CONSULTANT Ot Z79.84 MINERALOGY PROFESSOR (CURRENT) USE OF ORAL HYPOGLYC 06/14/2018 YOANA BURCIAGA IT INFRASTRUCTURE CONSULTANT Ot Z82.49 FAMILY HX OF ISCHEM HEART DIS AND OTH DI 06/14/2018 YOANA BURCIAGA IT INFRASTRUCTURE CONSULTANT Ot Z88.2 ALLERGY STATUS TO SULFONAMIDES STATUS 06/14/2018 YOANA BURCIAGA IT INFRASTRUCTURE CONSULTANT Ot Z88.8 ALLERGY STATUS TO OTH DRUG/MEDS/BIOL SUB 06/14/2018 YOANA BURCIAGA IT INFRASTRUCTURE CONSULTANT Ot Z90.49 ACQUIRED ABSENCE OF OTHER SPECIFIED PART 06/14/2018 YOANA BURCIAGA IT INFRASTRUCTURE CONSULTANT Ot Z90.89 ACQUIRED ABSENCE OF OTHER ORGANS 06/16/2018 YOANA BURCIAGA IT INFRASTRUCTURE CONSULTANT Ot E11.9 TYPE 2 DIABETES MELLITUS WITHOUT COMPLIC 06/16/2018 YOANA BURCIAGA IT INFRASTRUCTURE CONSULTANT Ot E66.01 MORBID (SEVERE) OBESITY DUE TO EXCESS CA 06/16/2018 PATRICA YOANA IT INFRASTRUCTURE CONSULTANT Ot F12.10 CANNABIS ABUSE, UNCOMPLICATED 06/16/2018 PATRICA, YOANA IT INFRASTRUCTURE CONSULTANT Ot G47.30 SLEEP APNEA, UNSPECIFIED 06/16/2018 PATRICA YOANA IT INFRASTRUCTURE CONSULTANT Ot I10 ESSENTIAL (PRIMARY) HYPERTENSION 06/16/2018 PATRICA YOANA IT INFRASTRUCTURE CONSULTANT Ot J40 BRONCHITIS, NOT SPECIFIED ACUTE OR CH 06/16/2018 YOANA BURCIAGA IT INFRASTRUCTURE CONSULTANT Ot J45.909 UNSPECIFIED ASTHMA, UNCOMPLICATED 06/16/2018 PATRICA YOANA IT INFRASTRUCTURE CONSULTANT Ot R05 COUGH 06/16/2018 PATRICA YOANA IT INFRASTRUCTURE CONSULTANT Ot Z68.43 BODY MASS INDEX (BMI) 50-59.9, ADULT 06/16/2018 YOANA BURCIAGA IT INFRASTRUCTURE CONSULTANT Ot Z77.120 CONTACT WITH AND (SUSPECTED) EXPOSURE TO 06/16/2018 PATRICA, YOANA IT INFRASTRUCTURE CONSULTANT Ot Z77.22 CNTCT W AND EXPSR TO ENVIRON TOBACCO SMO 06/16/2018 PATRICA YOANA IT INFRASTRUCTURE CONSULTANT Ot Z79.84 LONG-TERM (CURRENT) USE OF ORAL HYPOGLYC 06/16/2018 PATRICA YOANA IT INFRASTRUCTURE CONSULTANT Ot Z82.49 FAMILY HX OF ISCHEM HEART DIS AND OTH DI 06/16/2018 PATRICA, YOANA IT INFRASTRUCTURE CONSULTANT Ot Z88.2 ALLERGY STATUS TO SULFONAMIDES STATUS 06/16/2018 PATRICA, YOANA IT INFRASTRUCTURE CONSULTANT Ot Z88.8 ALLERGY STATUS TO OTH DRUG/MEDS/BIOL SUB 06/16/2018 PATRICA YOANA IT INFRASTRUCTURE CONSULTANT Ot Z90.49 ACQUIRED ABSENCE OF OTHER SPECIFIED PART 06/16/2018 PATRICA YOANA IT INFRASTRUCTURE CONSULTANT Ot Z90.89 ACQUIRED ABSENCE OF OTHER ORGANS Procedures There is no data. Results Test [...] measurement by glucometer (mass/volume) 95 mg/dL 70-110 Complete blood count (CBC) with automated white blood cell (WBC) differential - 06/14/18 22:40 Blood leukocytes automated count (number/volume) 13.1 10*3/uL 4.3-11.0 Blood erythrocytes automated count (number/volume) 5.45 10*6/uL 4.35-5.85 Venous blood hemoglobin measurement (mass/volume) 15.9 g/dL 13.3-17.7 Blood hematocrit (volume fraction) 47 % 40-54 Automated erythrocyte mean corpuscular volume 86 [foz_us] 80-99 Automated erythrocyte mean corpuscular hemoglobin (mass per erythrocyte) 29 pg 25-34 Automated erythrocyte mean corpuscular hemoglobin concentration measurement ( mass/volume) 34 g/dL 32-36 Automated erythrocyte distribution width ratio 14.2 % 10.0-14.5 Automated blood platelet count (count/volume) 297 10*3/uL 130-400 Automated blood platelet mean volume measurement 11.5 [foz_us] 7.4-10.4 Automated blood neutrophils/100 leukocytes 62 % 42-75 Automated blood lymphocytes/100 leukocytes 27 % 12-44 Blood monocytes/100 leukocytes 9 % 0-12 Automated blood eosinophils/100 leukocytes 2 % 0-10 Automated blood basophils/100 leukocytes 0 % 0-10 Blood neutrophils automated count (number/volume) 8.1 10*3 1.8-7.8 Blood lymphocytes automated count (number/volume) 3.5 10*3 1.0-4.0 Blood monocytes automated count (number/volume) 1.2 10*3 0.0-1.0 Automated eosinophil count 0.2 10*3/uL 0.0-0.3 Automated blood basophil count (count/volume) 0.0 10*3/uL 0.0-0.1 Comprehensive metabolic panel - 11/18/18 22:40 Serum or plasma sodium measurement (moles/volume) 140 mmol/L 135-145 Serum or plasma potassium measurement (moles/volume) 3.7 mmol/L 3.6-5.0 Serum or plasma chloride measurement (moles/volume) 105 mmol/L 98-107 Carbon dioxide 23 mmol/L 21-32 Serum or plasma anion gap determination (moles/volume) 12 mmol/L 5-14 Serum or plasma urea nitrogen measurement (mass/volume) 15 mg/dL 7-18 Serum or plasma creatinine measurement (mass/volume) 0.98 mg/dL 0.60-1.30 Serum or plasma urea nitrogen/creatinine mass ratio 15 NRG Serum or plasma creatinine measurement with calculation of estimated glomerular filtration rate > NRG Serum or plasma glucose measurement (mass/volume) 93 mg/dL 70-105 Serum or plasma calcium measurement (mass/volume) 9.8 mg/dL 8.5-10.1 Serum or plasma total bilirubin measurement (mass/volume) 0.8 mg/dL 0.1-1.0 Serum or plasma alkaline phosphatase measurement (enzymatic activity/volume) 63 U/L 40-136 Serum or plasma aspartate aminotransferase measurement (enzymatic activity/ volume) 29 U/L 5-34 Serum or plasma alanine aminotransferase measurement (enzymatic activity/volume ) 32 U/L 0-55 Serum or plasma protein measurement (mass/volume) 8.6 g/dL 6.4-8.2 Serum or plasma albumin measurement (mass/volume) 4.4 g/dL 3.2-4.5 CALCIUM CORRECTED 9.5 mg/dL 8.5-10.1 Serum or plasma C reactive protein measurement (mass/volume) - 06/14/18 22:40 Serum or plasma C reactive protein measurement (mass/volume) 1.07 mg /dL 0.00-0.50 Encounters ACCT No. Visit Date/Time Discharge Status Pt. Type Provider Facility Loc./Unit Complaint [id number] 06/14/2018 21:09:00 06/14/2018 23:22:00 DIS Emergency YOANA BURCIAGA [facility] ER COUGH [id number] 04/01/2018 06:12:00 04/01/2018 22:40:00 DIS Outpatient YANY HUDSON DO [facility] SDC ACUTE CHOLEYCYSTITIS [id number] 10/25/2017 13:18:00 10/25/2017 16:57:00 DIS Emergency ALBERTINA MORIN, TOBY Lopes [facility] ER SICK X1 WEEK,CHILLS, DIZZY, [id number] 11/22/2013 12:38:00 11/22/2013 13:27:00 DIS Emergency OMERO ISAACS APRN [facility] ER WOUND CHECK [id number] 11/20/2013 22:15:00 11/21/2013 01:23:00 DIS Emergency JEREMÍAS STARK [facility] ER L MIDDLE FINGER INJ [id number] 11/20/2013 17:16:00 11/20/2013 19:30:00 DIS Emergency JEREMÍAS STARK [facility] ER L HAND INJ [id number] 04/01/2013 10:25:00 04/01/2013 23:59:59 CLS Outpatient [id number] 03/01/2013 08:39:00 03/01/2013 23:59:59 CLS Outpatient [id number] 08/11/2018 10:01:00 ACT Emergency OMERO ISAACS APRN [facility] ER SOB [id number] 03/08/2018 10:49:00 Document Registration
== END | disposition home or self-care (01) ==
LOC: EDUNIT# 10:01 → ER 10:01
DX: J45.901 Unspecified asthma with (acute) exacerbation (principal); F12.10 Cannabis abuse, uncomplicated; G47.30 Sleep apnea, unspecified; I10 Essential (primary) hypertension; E11.9 Type 2 diabetes mellitus without complications; E66.01 Morbid (severe) obesity due to excess calories; F17.210 Nicotine dependence, cigarettes, uncomplicated; Z88.2 Allergy status to sulfonamides; Z68.43 Body mass index [BMI] 50.0-59.9, adult; Z88.8 Allergy status to other drugs, medicaments and biological substances; Z79.84 Long term (current) use of oral hypoglycemic drugs; Z90.89 Acquired absence of other organs; Z90.49 Acquired absence of other specified parts of digestive tract
CPT/HCPCS: 71046

== ENCOUNTER 2018-08-13 10:28 | Emergency (ER) | payer SELFPAY ==
[~2018-08-13] VITALS: Ht 172.7 cm; Wt 174.6 kg
[~2018-08-13 10:28] MED LIST changes: -D-ME473S38 PO; -RT-ALBUTEROL/IPRATROPIUM 3 ML (DUONEB) VIAL INH ONE
--- OUTSIDE RECORDS SUMMARY | 2018-08-13 10:47 | XMS REPORT | Continuity of Care Document ---
Author Author [facility] Organization [facility] Address Unknown Phone Unavailable Allergies Active Description Code Type Severity Reaction Onset Reported/Identified Relationship to Patient Clinical Status Yes STEROIDS STEROIDS Mild N/A 12/05/2008 Yes Sulfa (Sulfonamide Antibiotics) [id number] Drug Allergy Mild N/A 2008 Yes prednisone [id number] Drug Allergy Unknown vomiting 06/14/2018 Medications There [...] ACCIDENT NOS 11/20/2013 JEREMÍAS STARK Ot V06.1 [id number], COMBINED [ 11/21/2013 JEREMÍAS STARK Ot 998.11 HEMOR COMPLIC A PROCEDURE 11/22/2013 OMERO ISAACS INSTRUCTOR PSYCHIATRIC AIDE Ot V58.31 ENCOUNTER FOR CHANGE OR REMOVAL [...] ADULT 04/01/2018 YANY HUDSON DO Ot Z79.82 CARE HOME (CURRENT) USE OF ASPIRIN 04/01/2018 YANY HUDSON DO Ot Z79.84 CARE HOME (CURRENT) USE OF ORAL HYPOGLYC 04/08/2018 YANY [...] ADULT 04/08/2018 YANY HUDSON DO Ot Z79.82 MEASURER (CURRENT) USE OF ASPIRIN 04/08/2018 YANY HUDSON DO Ot Z79.84 MEASURER (CURRENT) USE OF ORAL HYPOGLYC 04/09/2018 YANY [...] ADULT 04/09/2018 YANY HUDSON DO Ot Z79.82 MEASURER (CURRENT) USE OF ASPIRIN 04/09/2018 YANY HUDSON DO Ot Z79.84 MEASURER (CURRENT) USE OF ORAL HYPOGLYC 04/10/2018 YANY [...] ADULT 04/10/2018 YANY HUDSON DO Ot Z79.82 CARE HOME (CURRENT) USE OF ASPIRIN 04/10/2018 YANY HUDSON DO Ot Z79.84 MEASURER (CURRENT) USE OF ORAL HYPOGLYC 06/14/2018 YOANA BURCIAGAP Ot E11.9 TYPE 2 DIABETES MELLITUS WITHOUT COMPLIC 06/14/2018 YOANA BURCIAGAP Ot E66.01 MORBID (SEVERE) OBESITY DUE TO EXCESS CA 06/14/2018 YOANA BURCIAGAP Ot F12.10 CANNABIS ABUSE, UNCOMPLICATED 06/14/2018 YOANA BURCIAGAP Ot G47.30 SLEEP APNEA, UNSPECIFIED 06/14/2018 YOANA BURCIAGA OPERATIONS REPRESENTATIVE Ot I10 ESSENTIAL (PRIMARY) HYPERTENSION 06/14/2018 YOANA BURCIAGAP Ot J40 BRONCHITIS, NOT SPECIFIED ACUTE OR CH 06/14/2018 YOANA BURCIAGA Ot J45.909 UNSPECIFIED ASTHMA, UNCOMPLICATED 06/14/2018 YOANA BURCIAGAP Ot R05 COUGH 06/14/2018 YOANA BURCIAGA OPERATIONS REPRESENTATIVE Ot Z68.43 BODY MASS INDEX (BMI) 50-59.9, ADULT 06/14/2018 YOANA BURCIAGA OPERATIONS REPRESENTATIVE Ot Z77.120 CONTACT WITH AND (SUSPECTED) EXPOSURE TO 06/14/2018 PATRICA, YOANA OPERATIONS REPRESENTATIVE Ot Z77.22 CNTCT W AND EXPSR TO ENVIRON TOBACCO SMO 06/14/2018 PATRICA YOANA OPERATIONS REPRESENTATIVE Ot Z79.84 MEASURER (CURRENT) USE OF ORAL HYPOGLYC 06/14/2018 YOANA BURCIAGA OPERATIONS REPRESENTATIVE Ot Z82.49 FAMILY HX OF ISCHEM HEART DIS AND OTH DI 06/14/2018 YOANA BURCIAGA OPERATIONS REPRESENTATIVE Ot Z88.2 ALLERGY STATUS TO SULFONAMIDES STATUS 06/14/2018 YOANA BURCIAGA OPERATIONS REPRESENTATIVE Ot Z88.8 ALLERGY STATUS TO OTH DRUG/MEDS/BIOL SUB 06/14/2018 YOANA BURCIAGA OPERATIONS REPRESENTATIVE Ot Z90.49 ACQUIRED ABSENCE OF OTHER SPECIFIED PART 06/14/2018 YOANA BURCIAGA OPERATIONS REPRESENTATIVE Ot Z90.89 ACQUIRED ABSENCE OF OTHER ORGANS 06/16/2018 YOANA BURCIAGA OPERATIONS REPRESENTATIVE Ot E11.9 TYPE 2 DIABETES MELLITUS WITHOUT COMPLIC 06/16/2018 YOANA BURCIAGA OPERATIONS REPRESENTATIVE Ot E66.01 MORBID (SEVERE) OBESITY DUE TO EXCESS CA 06/16/2018 PATRICA YOANA OPERATIONS REPRESENTATIVE Ot F12.10 CANNABIS ABUSE, UNCOMPLICATED 06/16/2018 PATRICA, YOANA OPERATIONS REPRESENTATIVE Ot G47.30 SLEEP APNEA, UNSPECIFIED 06/16/2018 PATRICA YOANA OPERATIONS REPRESENTATIVE Ot I10 ESSENTIAL (PRIMARY) HYPERTENSION 06/16/2018 PATRICA YOANA OPERATIONS REPRESENTATIVE Ot J40 BRONCHITIS, NOT SPECIFIED ACUTE OR CH 06/16/2018 YOANA BURCIAGA OPERATIONS REPRESENTATIVE Ot J45.909 UNSPECIFIED ASTHMA, UNCOMPLICATED 06/16/2018 PATRICA YOANA OPERATIONS REPRESENTATIVE Ot R05 COUGH 06/16/2018 PATRICA YOANA OPERATIONS REPRESENTATIVE Ot Z68.43 BODY MASS INDEX (BMI) 50-59.9, ADULT 06/16/2018 YOANA BURCIAGA OPERATIONS REPRESENTATIVE Ot Z77.120 CONTACT WITH AND (SUSPECTED) EXPOSURE TO 06/16/2018 PATRICA, YOANA OPERATIONS REPRESENTATIVE Ot Z77.22 CNTCT W AND EXPSR TO ENVIRON TOBACCO SMO 06/16/2018 PATRICA YOANA OPERATIONS REPRESENTATIVE Ot Z79.84 CARE HOME (CURRENT) USE OF ORAL HYPOGLYC 06/16/2018 PATRICA YOANA OPERATIONS REPRESENTATIVE Ot Z82.49 FAMILY HX OF ISCHEM HEART DIS AND OTH DI 06/16/2018 PATRICA, YOANA OPERATIONS REPRESENTATIVE Ot Z88.2 ALLERGY STATUS TO SULFONAMIDES STATUS 06/16/2018 PATRICA, YOANA OPERATIONS REPRESENTATIVE Ot Z88.8 ALLERGY STATUS TO OTH DRUG/MEDS/BIOL SUB 06/16/2018 PATRICA YOANA OPERATIONS REPRESENTATIVE Ot Z90.49 ACQUIRED ABSENCE OF OTHER SPECIFIED PART 06/16/2018 PATRICA YOANA OPERATIONS REPRESENTATIVE Ot Z90.89 ACQUIRED ABSENCE OF OTHER ORGANS [...] Status Pt. Type Provider Facility Loc./Unit Complaint [id number] 06/14/2018 21:09:00 06/14/2018 23:22:00 DIS Emergency YOANA BURCIAGA [facility] ER COUGH [id number] 04/01/2018 06:12:00 04/01/2018 22:40:00 DIS Outpatient YANY HUDSON DO [facility] SDC ACUTE CHOLEYCYSTITIS [id number] 10/25/2017 13:18:00 10/25/2017 16:57:00 DIS Emergency ALBERTINA MORIN, TOBY Lopes [facility] ER SICK X1 WEEK,CHILLS, DIZZY, [id number] 11/22/2013 12:38:00 11/22/2013 13:27:00 DIS Emergency OMERO ISAACS APRN [facility] ER WOUND CHECK [id number] 11/20/2013 22:15:00 11/21/2013 01:23:00 DIS Emergency JEREMÍAS STARK [facility] ER L MIDDLE FINGER INJ [id number] 11/20/2013 17:16:00 11/20/2013 19:30:00 DIS Emergency JEREMÍAS STARK [facility] ER L HAND INJ [id number] 04/01/2013 10:25:00 04/01/2013 23:59:59 CLS Outpatient [id number] 03/01/2013 08:39:00 03/01/2013 23:59:59 CLS Outpatient [id number] 08/13/2018 10:29:00 ACT Emergency THEODORE MORIN, JOSE [place] [facility] ER LIGHT HEADED;LEG WEAKNESS [id number] 08/11/2018 10:01:00 ACT Emergency OMERO ISAACS APRN [facility] ER SOB [id number] 03/08/2018 10:49:00 Document Registration
[2018-08-13] MEDS ORDERED: PROMETHAZINE/ CODEINE SYRUP 5 ML UDC PO ONE (12:30)
[2018-08-13 12:33] LABS: BASOPHILS % (AUTO) 0 % (0-10); EOSINOPHILS # (AUTO) 0.2 10^3/uL (0.0-0.3); EOSINOPHILS % (AUTO) 2 % (0-10); HEMATOCRIT 47 % (40-54); HEMOGLOBIN 15.2 G/DL (13.3-17.7); LYMPHOCYTES # (AUTO) 2.1 X 10^3 (1.0-4.0); LYMPHOCYTES % (AUTO) 24 % (12-44); MEAN CORPUSCULAR HEMOGLOBIN 28 PG (25-34); MEAN CORPUSCULAR HGB CONC 32 G/DL (32-36); MEAN CORPUSCULAR VOLUME 87 FL (80-99); MEAN PLATELET VOLUME 11.4 FL (7.4-10.4); MONOCYTES % (AUTO) 11 % (0-12); NEUTROPHILS # (AUTO) 5.3 X 10^3 (1.8-7.8); NEUTROPHILS % (AUTO) 62 % (42-75); PLATELET COUNT 257 10^3/uL (130-400); RED BLOOD COUNT 5.42 10^6/uL (4.35-5.85); RED CELL DISTRIBUTION WIDTH 14.1 % (10.0-14.5); WHITE BLOOD COUNT 8.6 10^3/uL (4.3-11.0)
[2018-08-13 12:52] LABS: ALANINE AMINOTRANSFERASE 18 U/L (0-55); ALKALINE PHOSPHATASE 72 U/L (40-136); BILIRUBIN,TOTAL 0.4 MG/DL (0.1-1.0); BUN/CREATININE RATIO 12; CALCIUM 9.1 MG/DL (8.5-10.1); CARBON DIOXIDE 27 MMOL/L (21-32); CHLORIDE 108 MMOL/L (98-107); CREATININE SERUM 0.84 MG/DL (0.60-1.30); GFR ESTIMATED > 60; GLUCOSE 101 MG/DL (70-105); SODIUM 142 MMOL/L (135-145); TOTAL PROTEIN 7.8 GM/DL (6.4-8.2)
--- NOTE | 2018-08-13 13:01 | Diagnostic Imaging Report ---
INDICATION: Syncope, history of hypertension. PA and lateral chest obtained at 1:13 p.m. FINDINGS: Heart and mediastinal silhouette are normal in appearance. The lungs are clear. There is no pneumothorax or pleural fluid. IMPRESSION: Negative chest. Dictated by: Dictated on workstation # [id number]
[2018-08-13] MEDS ORDERED: D-ME473S38 PO (13:07)
[2018-08-13] MEDS ORDERED: AZIT250T PO (13:07)
--- NOTE | 2018-08-13 13:07 | ED Respiratory ---
General Chief Complaint: Respiratory Problems Stated Complaint: LIGHT HEADED;LEG WEAKNESS Nursing Triage Note: PT CO OF SOA AND DIZZINESS FOR COUPLE DAYS PT SEEN IN ED 08/11 FOR SAME PROBLEMS PT HAS HX OF ASHTMA Source: patient Exam Limitations: no limitations History of Present Illness Date Seen by Provider: Aug 13, 2018 Time Seen by Provider: 12:20 Initial Comments 27-year-old male who presents to the emergency room with complaints of shortness of air and dizziness after he started using his inhaler. He has history of asthma and was seen in the emergency room on 08/11 for the same problem. He reports that his coughing has became worse. His inhaler seems to be working. Timing/Duration: week Prior Episodes/Possible Cause: frequent episodes Modifying Factors: Improves With Albuterol Inhaler Associated Symptoms: cough, dizziness, shortness of breath Allergies and Home Medications Allergies Coded Allergies: Sulfa (Sulfonamide Antibiotics) (Unverified Allergy, Mild, 12/05/08) prednisone (Verified Adverse Reaction, Unknown, vomiting, 06/14/18) Home Medications Albuterol Sulfate 1 Puff Puff, 2 PUFF IH Q4H PRN for WHEEZING 1 PUFF = 90 MCG Prescribed by: OMERO ISAACS on 08/11/18 1046 Azithromycin 250 Mg Tablet, 250 MG PO UD TAKE 2 TABLETS TODAY, THEN TAKE 1 TABLET DAILY FOR 4 MORE DAYS Prescribed by: CEDRIC VALENCIA on 08/13/18 1307 Promethazine/Dextromethorphan 473 Ml Syrup, 5 ML PO Q6H PRN for COUGH Prescribed by: CEDRIC VALENCIA on 08/13/18 1307 Patient Home Medication List Home Medication List Reviewed: Yes Review of Systems Review of Systems Constitutional: see HPI, dizziness; No fever Respiratory: see HPI, cough, short of breath All Other Systems Reviewed Negative Unless Noted: Yes Past Anonwcq-Ibxphm-Ymzyyz Hx Past Med/Social Hx: Reviewed Nursing Past Med/Soc Hx Patient Social History Alcohol Use: Rarely Uses Recreational Drug Use: Yes Drug of Choice: marijuana Smoking Status: Current Everyday Smoker Type Used: Cigarettes 2nd Hand Smoke Exposure: Yes Recent Foreign Travel: No Contact w/Someone Who Travel: No Recent Infectious Disease Expo: No Recent Hopitalizations: No Immunizations Up To Date Tetanus Booster (TDap): Less than 5yrs Past Medical History Surgeries: Yes Appendectomy, Tonsillectomy Respiratory: Yes Asthma, Sleep Apnea Cardiac: Yes Hypertension Neurological: No Reproductive Disorders: No Genitourinary: No Gastrointestinal: No Musculoskeletal: No Endocrine: Yes (morbid obesity) Diabetes, Non-Insulin dep HEENT: No Cancer: No Psychosocial: No Integumentary: No Blood Disorders: No Family Medical History Reviewed Nursing Family Hx Heart Disease Physical Exam Vital Signs - First Documented 08/13/18 08/13/18 12:20 13:58 Temp 98.3 Pulse 85 Resp 18 B/P (MAP) 149/93 (111) Pulse Ox 98 O2 Delivery Room Air Capillary Refill : Less Than 3 Seconds Height: 5'8.00" Weight: 385lbs. 0.0oz. 174.781896jr; 58.5 BMI Method:Stated General Appearance: WD/WN, no apparent distress HEENT: PERRL/EOMI, normal ENT inspection, TMs normal, pharynx normal Respiratory: chest non-tender, lungs clear, normal breath sounds, no respiratory distress, no accessory muscle use, respiratory distress Cardiovascular: normal peripheral pulses, regular rate, rhythm, no edema, no gallop, no JVD, no murmur Gastrointestinal: normal bowel sounds, non tender, soft, no organomegaly, no pulsatile mass Extremities: normal capillary refill Neurologic/Psychiatric: alert, normal mood/affect, oriented x 3 Skin: normal color, warm/dry Progress/Results/Core Measures Suspected Sepsis Recent Fever Within 48 Hours: No Infection Criteria Present: None New/Unexplained Altered Menta: No Sepsis Screen: No Definite Risk SIRS Temperature:98.3 Pulse: 85 Respiratory Rate: Laboratory Tests 08/13/18 12:23: White Blood Count 8.6 Blood Pressure 149 /93 Mean: 111 Laboratory Tests 08/13/18 12:23: Creatinine 0.84, Platelet Count 257, Total Bilirubin 0.4 Results/Orders Lab Results Laboratory Tests Test 08/13/18 12:23 Range/Units White Blood Count 8.6 4.3-11.0 10^3/uL Red Blood Count 5.42 4.35-5.85 10^6/uL Hemoglobin 15.2 13.3-17.7 G/DL Hematocrit 47 40-54 % Mean Corpuscular Volume 87 80-99 FL Mean Corpuscular Hemoglobin 28 25-34 PG Mean Corpuscular Hemoglobin Concent 32 32-36 G/DL Red Cell Distribution Width 14.1 10.0-14.5 % Platelet Count 257 130-400 10^3/uL Mean Platelet Volume 11.4 H 7.4-10.4 FL Neutrophils (%) (Auto) 62 42-75 % Lymphocytes (%) (Auto) 24 12-44 % Monocytes (%) (Auto) 11 0-12 % Eosinophils (%) (Auto) 2 0-10 % Basophils (%) (Auto) 0 0-10 % Neutrophils # (Auto) 5.3 1.8-7.8 X 10^3 Lymphocytes # (Auto) 2.1 1.0-4.0 X 10^3 Monocytes # (Auto) 1.0 0.0-1.0 X 10^3 Eosinophils # (Auto) 0.2 0.0-0.3 10^3/uL Basophils # (Auto) 0.0 0.0-0.1 10^3/uL Sodium Level 142 135-145 MMOL/L Potassium Level 4.0 3.6-5.0 MMOL/L Chloride Level 108 H 98-107 MMOL/L Carbon Dioxide Level 27 21-32 MMOL/L Anion Gap 7 5-14 MMOL/L Blood Urea Nitrogen 10 7-18 MG/DL Creatinine 0.84 0.60-1.30 MG/DL Estimat Glomerular Filtration Rate > 60 BUN/Creatinine Ratio 12 Glucose Level 101 70-105 MG/DL Calcium Level 9.1 8.5-10.1 MG/DL Corrected Calcium 9.1 8.5-10.1 MG/DL Total Bilirubin 0.4 0.1-1.0 MG/DL Aspartate Amino Transf (AST/SGOT) 27 5-34 U/L Alanine Aminotransferase (ALT/SGPT) 18 0-55 U/L Alkaline Phosphatase 72 40-136 U/L Total Protein 7.8 6.4-8.2 GM/DL Albumin 4.0 3.2-4.5 GM/DL My Orders Orders - CEDRIC VALENCIA Comprehensive Metabolic Panel (08/13/18 12:24) Saline Lock/Iv-Start (08/13/18 12:24) Cbc With Automated Diff (08/13/18 12:24) Chest Pa/Lat (2 View) (08/13/18 12:24) Promethazine/ Codeine Syrup (Phenergan W (08/13/18 12:30) Medications Given in ED Vital Signs/I&O 08/13/18 08/13/18 12:20 13:58 Temp 98.3 98.3 Pulse 85 86 Resp 18 B/P (MAP) 149/93 (111) 138/93 (108) Pulse Ox 98 98 O2 Delivery Room Air Room Air Capillary Refill : Less Than 3 Seconds Blood Pressure Mean: 111 Diagnostic Imaging Diagonstic Imaging: Xray Plain Films/CT/US/NM/MRI: chest Comments NAME: CEDRIC VICK MED REC#: [id number] PHYSICIAN: CEDRIC VALENCIA CC: CEDRIC VALENCIA; LARRY GAFFNEY MD Page 1 of 1 RADIOLOGY REPORT [facility] [place] [place] CC: CEDRIC VALENCIA; LARRY GAFFNEY MD Page 1 of 1 RADIOLOGY REPORT NAME: GRISELDACEDRIC BAIRD MED REC#: [id number] PT STATUS: DEP ER : 1990 PHYSICIAN: CEDRIC VALENCIA ADMIT DATE: 08/13/18/ER Signed Date of Exam: 08/13/18 CHEST PA/LAT (2 VIEW) INDICATION: Syncope, history of hypertension. PA and lateral chest obtained at 1:13 p.m. FINDINGS: Heart and mediastinal silhouette are normal in appearance. The lungs are clear. There is no pneumothorax or pleural fluid. IMPRESSION: Negative chest. Dictated by: Dictated on workstation # [id number] Dict: 08/13/18 1253 Trans: 08/13/18 1445 Interpreted by: LARRY GAFFNEY MD Electronically signed by: LARRY GAFFNEY MD 08/13/18 1445 Reviewed: Reviewed by Me Departure Impression Primary Impression: Bronchitis Disposition: HOME, SELF-CARE Condition: Stable/Unchanged Departure-Patient Inst. Decision time for Depature: 13:05 Referrals: [facility] (PCP/Family) Primary Care Physician Patient Instructions: Asthma, Adult (DC), Acute Bronchitis, Adult (DC) Add. Discharge Instructions: Continue to use your inhaler as previously prescribed. Take medications as directed. Follow-up with your primary care provider within 1 week for recheck. Return back to the emergency room for worsening symptoms or concerns as needed. All discharge instructions reviewed with patient and/or family. Voiced understanding. Scripts Promethazine/Dextromethorphan (Promethazine-Dm Syrup) 473 Ml Syrup 5 ML PO Q6H PRN for COUGH, #60 ML Prov: CEDRIC VALENCIA 08/13/18 Azithromycin (Zithromax) 250 Mg Tablet 250 MG PO UD, #6 TAB TAKE 2 TABLETS TODAY, THEN TAKE 1 TABLET DAILY FOR 4 MORE DAYS Prov: CEDRIC VALENCIA 08/13/18 CEDRIC VALENCIA Aug 13, 2018 13:07
[2018-08-13 13:58] VITALS: BP 138/93
== END 2018-08-13 13:58 | disposition home or self-care (01) ==
LOC: EDUNIT# 10:28 → ER 10:29
DX: J40 Bronchitis, not specified as acute or chronic (principal); J45.909 Unspecified asthma, uncomplicated; I10 Essential (primary) hypertension; E66.01 Morbid (severe) obesity due to excess calories; E11.9 Type 2 diabetes mellitus without complications; F12.10 Cannabis abuse, uncomplicated; F17.210 Nicotine dependence, cigarettes, uncomplicated; Z90.49 Acquired absence of other specified parts of digestive tract; Z90.89 Acquired absence of other organs; Z82.49 Family history of ischemic heart disease and other diseases of the circulatory system; Z68.43 Body mass index [BMI] 50.0-59.9, adult; Z88.2 Allergy status to sulfonamides; Z88.8 Allergy status to other drugs, medicaments and biological substances; Z79.51 Long term (current) use of inhaled steroids
CPT/HCPCS: 36415; 71046; 80053; 85025

== ENCOUNTER 2018-09-03 23:25 | Emergency (ER) | payer SELFPAY ==
[~2018-09-03] VITALS: Ht 172.7 cm; Wt 158.8 kg
[~2018-09-03 23:25] MED LIST changes: +D-ME473S38 PO
--- OUTSIDE RECORDS SUMMARY | 2018-09-03 23:50 | XMS REPORT | Continuity of Care Document ---
Author Author [facility] Organization [facility] Address Unknown Phone Unavailable Allergies Active Description Code Type Severity Reaction Onset Reported/Identified Relationship to Patient Clinical Status Yes STEROIDS STEROIDS Mild N/A 12/05/2008 Yes Sulfa (Sulfonamide Antibiotics) [id number] Drug Allergy Mild N/A 2008 Yes prednisone [id number] Drug Allergy Unknown vomiting 06/14/2018 Medications There [...] ACCIDENT NOS 11/20/2013 JEREMÍAS STARK Ot V06.1 [id number], COMBINED [ 11/21/2013 JEREMÍAS STARK Ot 998.11 [...] ADULT 04/01/2018 YANY HUDSON DO Ot Z79.82 TRACK LABORER (CURRENT) USE OF ASPIRIN 04/01/2018 YANY HUDSON DO Ot Z79.84 TRACK LABORER (CURRENT) USE OF ORAL HYPOGLYC 04/08/2018 YANY [...] ADULT 04/08/2018 YANY HUDSON DO Ot Z79.82 TRACK LABORER (CURRENT) USE OF ASPIRIN 04/08/2018 YANY HUDSON DO Ot Z79.84 TRACK LABORER (CURRENT) USE OF ORAL HYPOGLYC 04/09/2018 YANY [...] ADULT 04/09/2018 YANY HUDSON DO Ot Z79.82 TRACK LABORER (CURRENT) USE OF ASPIRIN 04/09/2018 YANY HUDSON DO Ot Z79.84 TRACK LABORER (CURRENT) USE OF ORAL HYPOGLYC 04/10/2018 YANY [...] ADULT 04/10/2018 YANY HUDSON DO Ot Z79.82 RETIREMENT (CURRENT) USE OF ASPIRIN 04/10/2018 YANY HUDSON DO Ot Z79.84 TRACK LABORER (CURRENT) USE OF ORAL HYPOGLYC 06/14/2018 YOANA BURCIAGAP Ot E11.9 TYPE 2 DIABETES MELLITUS WITHOUT COMPLIC 06/14/2018 YOANA BURCIAGAP Ot E66.01 MORBID (SEVERE) OBESITY DUE TO EXCESS CA 06/14/2018 YOANA BURCIAGAP Ot F12.10 CANNABIS ABUSE, UNCOMPLICATED 06/14/2018 YOANA BURCIAGAP Ot G47.30 SLEEP APNEA, UNSPECIFIED 06/14/2018 YOANA BURCIAGA SUEDING MACHINE TENDER Ot I10 ESSENTIAL (PRIMARY) HYPERTENSION 06/14/2018 YOANA BURCIAGAP Ot J40 BRONCHITIS, NOT SPECIFIED ACUTE OR CH 06/14/2018 YOANA BURCIAGA Ot J45.909 UNSPECIFIED ASTHMA, UNCOMPLICATED 06/14/2018 YOANA BURCIAGAP Ot R05 COUGH 06/14/2018 YOANA BURCIAGA SUEDING MACHINE TENDER Ot Z68.43 BODY MASS INDEX (BMI) 50-59.9, ADULT 06/14/2018 YOANA BURCIAGA SUEDING MACHINE TENDER Ot Z77.120 CONTACT WITH AND (SUSPECTED) EXPOSURE TO 06/14/2018 PATRICAYOANA Jade SUEDING MACHINE TENDER Ot Z77.22 CNTCT W AND EXPSR TO ENVIRON TOBACCO SMO 06/14/2018 YOANA BURCIAGA SUEDING MACHINE TENDER Ot Z79.84 RETIREMENT (CURRENT) USE OF ORAL HYPOGLYC 06/14/2018 YOANA BURCIAGAP Ot Z82.49 FAMILY HX OF ISCHEM HEART DIS AND OTH DI 06/14/2018 YOANA BURCIAGA SUEDING MACHINE TENDER Ot Z88.2 ALLERGY STATUS TO SULFONAMIDES STATUS 06/14/2018 YOANA BURCIAGA SUEDING MACHINE TENDER Ot Z88.8 ALLERGY STATUS TO OTH DRUG/MEDS/BIOL SUB 06/14/2018 YOANA BURCIAGA SUEDING MACHINE TENDER Ot Z90.49 ACQUIRED ABSENCE OF OTHER SPECIFIED PART 06/14/2018 PATRICA YOANA SUEDING MACHINE TENDER Ot Z90.89 ACQUIRED ABSENCE OF OTHER ORGANS 06/16/2018 PATRICA YOANA SUEDING MACHINE TENDER Ot E11.9 TYPE 2 DIABETES MELLITUS WITHOUT COMPLIC 06/16/2018 PATRICA YOANA SUEDING MACHINE TENDER Ot E66.01 MORBID (SEVERE) OBESITY DUE TO EXCESS CA 06/16/2018 PATRICA YOANA SUEDING MACHINE TENDER Ot F12.10 CANNABIS ABUSE, UNCOMPLICATED 06/16/2018 PATRICA, YOANA SUEDING MACHINE TENDER Ot G47.30 SLEEP APNEA, UNSPECIFIED 06/16/2018 PATRICA YOANA SUEDING MACHINE TENDER Ot I10 ESSENTIAL (PRIMARY) HYPERTENSION 06/16/2018 PATRICA YOANA SUEDING MACHINE TENDER Ot J40 BRONCHITIS, NOT SPECIFIED ACUTE OR CH 06/16/2018 PATRICA YOANA SUEDING MACHINE TENDER Ot J45.909 UNSPECIFIED ASTHMA, UNCOMPLICATED 06/16/2018 PATRICA, YOANA SUEDING MACHINE TENDER Ot R05 COUGH 06/16/2018 PATRICA YOANA SUEDING MACHINE TENDER Ot Z68.43 BODY MASS INDEX (BMI) 50-59.9, ADULT 06/16/2018 YOANA BURCIAGA SUEDING MACHINE TENDER Ot Z77.120 CONTACT WITH AND (SUSPECTED) EXPOSURE TO 06/16/2018 PATRICA, YOANA SUEDING MACHINE TENDER Ot Z77.22 CNTCT W AND EXPSR TO ENVIRON TOBACCO SMO 06/16/2018 PATRICA YOANA SUEDING MACHINE TENDER Ot Z79.84 TRACK LABORER (CURRENT) USE OF ORAL HYPOGLYC 06/16/2018 PATRICA YOANA SUEDING MACHINE TENDER Ot Z82.49 FAMILY HX OF ISCHEM HEART DIS AND OTH DI 06/16/2018 PATRICA YOANA SUEDING MACHINE TENDER Ot Z88.2 ALLERGY STATUS TO SULFONAMIDES STATUS 06/16/2018 PATRICA, YOANA SUEDING MACHINE TENDER Ot Z88.8 ALLERGY STATUS TO OTH DRUG/MEDS/BIOL SUB 06/16/2018 PATRICA YOANA SUEDING MACHINE TENDER Ot Z90.49 ACQUIRED ABSENCE OF OTHER SPECIFIED PART 06/16/2018 PATRICA, YOANA SUEDING MACHINE TENDER Ot Z90.89 ACQUIRED ABSENCE OF OTHER ORGANS 08/11/2018 OMERO ISAACS APRN Ot E11.9 TYPE 2 DIABETES MELLITUS WITHOUT COMPLIC 08/11/2018 OMERO ISAACS APRN Ot E66.01 MORBID (SEVERE) OBESITY DUE TO EXCESS CA 08/11/2018 OMERO ISAACS APRN Ot F12.10 CANNABIS ABUSE, UNCOMPLICATED 08/11/2018 OMERO ISAACS APRN Ot F17.210 NICOTINE DEPENDENCE, CIGARETTES, UNCOMPL 08/11/2018 OMERO ISAACS APRN Ot G47.30 SLEEP APNEA, UNSPECIFIED 08/11/2018 OMERO ISAACS APRN Ot I10 ESSENTIAL (PRIMARY) HYPERTENSION 08/11/2018 OMERO ISAACS APRN Ot J45.901 UNSPECIFIED ASTHMA WITH (ACUTE) EXACERBA 08/11/2018 OMERO ISAACS APRN Ot R06.02 SHORTNESS OF BREATH 08/11/2018 OMERO ISAACS APRN Ot Z68.43 BODY MASS INDEX (BMI) 50-59.9, ADULT 08/11/2018 OMERO ISAACS APRN Ot Z79.84 TRACK LABORER (CURRENT) USE OF ORAL HYPOGLYC 08/11/2018 OMERO ISAACS APRN Ot Z88.2 ALLERGY STATUS TO SULFONAMIDES STATUS 08/11/2018 OMERO ISAACS APRN Ot Z88.8 ALLERGY STATUS TO OTH DRUG/MEDS/BIOL SUB 08/11/2018 OMERO ISAACS APRN Ot Z90.49 ACQUIRED ABSENCE OF OTHER SPECIFIED PART 08/11/2018 OMERO ISAACS APRN Ot Z90.89 ACQUIRED ABSENCE OF OTHER ORGANS 08/13/2018 CEDRIC VALENCIA Ot E11.9 TYPE 2 DIABETES MELLITUS WITHOUT COMPLIC 08/13/2018 CEDRIC VALENCIA Ot E66.01 MORBID (SEVERE) OBESITY DUE TO EXCESS CA 08/13/2018 CEDRIC VALENCIA Ot F12.10 CANNABIS ABUSE, UNCOMPLICATED 08/13/2018 CEDRIC VALENCIA Ot F17.210 NICOTINE DEPENDENCE, CIGARETTES, UNCOMPL 08/13/2018 CEDRIC VALENCIA Ot I10 ESSENTIAL (PRIMARY) HYPERTENSION 08/13/2018 CEDRIC VALENCIA Ot J40 BRONCHITIS, NOT SPECIFIED ACUTE OR CH 08/13/2018 CEDRIC VALENCIA Ot J45.909 UNSPECIFIED ASTHMA, UNCOMPLICATED 08/13/2018 CEDRIC VALENCIA Ot R06.02 SHORTNESS OF BREATH 08/13/2018 CEDRIC VALENCIA Ot Z68.43 BODY MASS INDEX (BMI) 50-59.9, ADULT 08/13/2018 CEDRIC VALENCIA Ot Z79.51 RETIREMENT (CURRENT) USE OF INHALED STERO 08/13/2018 CEDRIC VALENCIA Ot Z82.49 FAMILY HX OF ISCHEM HEART DIS AND OTH DI 08/13/2018 CEDRIC VALENCIA Ot Z88.2 ALLERGY STATUS TO SULFONAMIDES STATUS 08/13/2018 MEKHI VALENCIAIS Ot Z88.8 ALLERGY STATUS TO OTH DRUG/MEDS/BIOL SUB 08/13/2018 MEKHI VALENCIAIS Ot Z90.49 ACQUIRED ABSENCE OF OTHER SPECIFIED PART 08/13/2018 MEKHI VALENCIAIS Ot Z90.89 ACQUIRED ABSENCE OF OTHER ORGANS 08/17/2018 CEDRIC VALENCIA Ot E11.9 TYPE 2 DIABETES MELLITUS WITHOUT COMPLIC 08/17/2018 MEKHI VALENCIAIS Ot E66.01 MORBID (SEVERE) OBESITY DUE TO EXCESS CA 08/17/2018 MEKHI VALENCIAIS Ot F12.10 CANNABIS ABUSE, UNCOMPLICATED 08/17/2018 ERIK CEDRIC Ot F17.210 NICOTINE DEPENDENCE, CIGARETTES, UNCOMPL 08/17/2018 CEDRIC VALENCIA Ot I10 ESSENTIAL (PRIMARY) HYPERTENSION 08/17/2018 CEDRIC VALENCIA Ot J40 BRONCHITIS, NOT SPECIFIED ACUTE OR CH 08/17/2018 CEDRIC VALENCIA Ot J45.909 UNSPECIFIED ASTHMA, UNCOMPLICATED 08/17/2018 MEKHI VALENCIAIS Ot R06.02 SHORTNESS OF BREATH 08/17/2018 MEKHI VALENCIAIS Ot Z68.43 BODY MASS INDEX (BMI) 50-59.9, ADULT 08/17/2018 MEKHI VALENCIAIS Ot Z79.51 TRACK LABORER (CURRENT) USE OF INHALED STERO 08/17/2018 MEKHI VALENCIAIS Ot Z82.49 FAMILY HX OF ISCHEM HEART DIS AND OTH DI 08/17/2018 CEDRIC VALENCIA Ot Z88.2 ALLERGY STATUS TO SULFONAMIDES STATUS 08/17/2018 MEKHI VALENCIAIS Ot Z88.8 ALLERGY STATUS TO OTH DRUG/MEDS/BIOL SUB 08/17/2018 MEKHI VALENCIAIS Ot Z90.49 ACQUIRED ABSENCE OF OTHER SPECIFIED PART 08/17/2018 MEKHI VALENCIAIS Ot Z90.89 ACQUIRED ABSENCE OF OTHER ORGANS 08/19/2018 CEDRIC VALENCIA Ot E11.9 TYPE 2 DIABETES MELLITUS WITHOUT COMPLIC 08/19/2018 MEKHI VALENCIAIS Ot E66.01 MORBID (SEVERE) OBESITY DUE TO EXCESS CA 08/19/2018 CEDRIC VALENCIA Ot F12.10 CANNABIS ABUSE, UNCOMPLICATED 08/19/2018 MEKHI VALENCIAIS Ot F17.210 NICOTINE DEPENDENCE, CIGARETTES, UNCOMPL 08/19/2018 MEKHI VALENCIAIS Ot I10 ESSENTIAL (PRIMARY) HYPERTENSION 08/19/2018 MEKHI VALENCIAIS Ot J40 BRONCHITIS, NOT SPECIFIED ACUTE OR CH 08/19/2018 CEDRIC VALENCIA Ot J45.909 UNSPECIFIED ASTHMA, UNCOMPLICATED 08/19/2018 CEDRIC VALENCIA Ot R06.02 SHORTNESS OF BREATH 08/19/2018 MEKHI VALENCIAIS Ot Z68.43 BODY MASS INDEX (BMI) 50-59.9, ADULT 08/19/2018 MEKHI VALENCIAIS Ot Z79.51 TRACK LABORER (CURRENT) USE OF INHALED STERO 08/19/2018 MEKHI VALENCIAIS Ot Z82.49 FAMILY HX OF ISCHEM HEART DIS AND OTH DI 08/19/2018 MEKHI VALENCIAIS Ot Z88.2 ALLERGY STATUS TO SULFONAMIDES STATUS 08/19/2018 ERIK CEDRIC Ot Z88.8 ALLERGY STATUS TO OTH DRUG/MEDS/BIOL SUB 08/19/2018 MEKHI VALENCIAIS Ot Z90.49 ACQUIRED ABSENCE OF OTHER SPECIFIED PART 08/19/2018 MEKHI VALENCIAIS Ot Z90.89 ACQUIRED ABSENCE OF OTHER ORGANS [...] 0.0 10*3/uL 0.0-0.1 Comprehensive metabolic panel - 06/14/18 22:40 Serum or plasma sodium measurement (moles/volume) [...] protein measurement (mass/volume) 1.07 mg /dL 0.00-0.50 Complete blood count (CBC) with automated white blood cell (WBC) differential - 08/13/18 12:23 Blood leukocytes automated count (number/volume) 8.6 10*3/uL 4.3-11.0 Blood erythrocytes automated count (number/volume) 5.42 10*6/uL 4.35-5.85 Venous blood hemoglobin measurement (mass/volume) 15.2 g/dL 13.3-17.7 Blood hematocrit (volume fraction) 47 % 40-54 Automated erythrocyte mean corpuscular volume 87 [foz_us] 80-99 Automated erythrocyte mean corpuscular hemoglobin (mass per erythrocyte) 28 pg 25-34 Automated erythrocyte mean corpuscular hemoglobin concentration measurement ( mass/volume) 32 g/dL 32-36 Automated erythrocyte distribution width ratio 14.1 % 10.0-14.5 Automated blood platelet count (count/volume) 257 10*3/uL 130-400 Automated blood platelet mean volume measurement 11.4 [foz_us] 7.4-10.4 Automated blood neutrophils/100 leukocytes 62 % 42-75 Automated blood lymphocytes/100 leukocytes 24 % 12-44 Blood monocytes/100 leukocytes 11 % 0-12 Automated blood eosinophils/100 leukocytes 2 % 0-10 Automated blood basophils/100 leukocytes 0 % 0-10 Blood neutrophils automated count (number/volume) 5.3 10*3 1.8-7.8 Blood lymphocytes automated count (number/volume) 2.1 10*3 1.0-4.0 Blood monocytes automated count (number/volume) 1.0 10*3 0.0-1.0 Automated eosinophil count 0.2 10*3/uL 0.0-0.3 Automated blood basophil count (count/volume) 0.0 10*3/uL 0.0-0.1 Comprehensive metabolic panel - 08/13/18 12:23 Serum or plasma sodium measurement (moles/volume) 142 mmol/L 135-145 Serum or plasma potassium measurement (moles/volume) 4.0 mmol/L 3.6-5.0 Serum or plasma chloride measurement (moles/volume) 108 mmol/L 98-107 Carbon dioxide 27 mmol/L 21-32 Serum or plasma anion gap determination (moles/volume) 7 mmol/L 5-14 Serum or plasma urea nitrogen measurement (mass/volume) 10 mg/dL 7-18 Serum or plasma creatinine measurement (mass/volume) 0.84 mg/dL 0.60-1.30 Serum or plasma urea nitrogen/creatinine mass ratio 12 NRG Serum or plasma creatinine measurement with calculation of estimated glomerular filtration rate > NRG Serum or plasma glucose measurement (mass/volume) 101 mg/dL 70-105 Serum or plasma calcium measurement (mass/volume) 9.1 mg/dL 8.5-10.1 Serum or plasma total bilirubin measurement (mass/volume) 0.4 mg/dL 0.1-1.0 Serum or plasma alkaline phosphatase measurement (enzymatic activity/volume) 72 U/L 40-136 Serum or plasma aspartate aminotransferase measurement (enzymatic activity/ volume) 27 U/L 5-34 Serum or plasma alanine aminotransferase measurement (enzymatic activity/volume ) 18 U/L 0-55 Serum or plasma protein measurement (mass/volume) 7.8 g/dL 6.4-8.2 Serum or plasma albumin measurement (mass/volume) 4.0 g/dL 3.2-4.5 CALCIUM CORRECTED 9.1 mg/dL 8.5-10.1 Encounters ACCT No. Visit Date/Time Discharge Status Pt. Type Provider Facility Loc./Unit Complaint [id number] 08/13/2018 10:29:00 08/13/2018 13:58:00 DIS Emergency CEDRIC VALENCIA [facility] ER LIGHT HEADED;LEG WEAKNESS [id number] 08/11/2018 10:01:00 08/11/2018 11:11:00 DIS Emergency OMERO ISAACS CHECK SERVICES CLERK [facility] ER SOB [id number] 06/14/2018 21:09:00 06/14/2018 23:22:00 DIS Emergency YOANA BURCIAGAP [facility] ER COUGH [id number] 04/01/2018 06:12:00 04/01/2018 22:40:00 DIS Outpatient YANY HUDSON DO [facility] ACUTE CHOLEYCYSTITIS [id number] 10/25/2017 13:18:00 10/25/2017 16:57:00 DIS Emergency ALBERTINA MORIN, TOBY Lopes [facility] ER SICK X1 WEEK,CHILLS, DIZZY, [id number] 11/22/2013 12:38:00 11/22/2013 13:27:00 DIS Emergency OMERO ISAACS APRN [facility] ER WOUND CHECK [id number] 11/20/2013 22:15:00 11/21/2013 01:23:00 DIS Emergency JEREMÍAS STARK [facility] ER L MIDDLE FINGER INJ [id number] 11/20/2013 17:16:00 11/20/2013 19:30:00 DIS Emergency JEREMÍAS STARK [facility] ER L HAND INJ [id number] 04/01/2013 10:25:00 04/01/2013 23:59:59 CLS Outpatient [id number] 03/01/2013 08:39:00 03/01/2013 23:59:59 CLS Outpatient [id number] 09/03/2018 23:29:00 ACT Emergency SHASHANK CAMARGO MD [facility] ER DENTAL PAIN,SWELLING,FACE FEELS LIKE IT'S BURNING [id number] 03/08/2018 10:49:00 Document Registration
--- NOTE | 2018-09-04 02:12 | ED EENT ---
History of Present Illness General Chief Complaint: Dental Problems/Pain Stated Complaint: DENTAL PAIN,SWELLING,FACE FEELS LIKE IT'S BURNING Nursing Triage Note: Pt stated arrived with dental pain and swelling. Pt is alert, oriented and ambulatory at arrival. Pt walked to FT1. Pt stated for about 3 months his k-9 tooth on left side has been hurting. He tried to get into [facility], but they stated it was going to be 3 months out. Pt stated the pain radiates to back left mollars and into left cheek. Pt stated pain was burning earlier with numbness, but pain is throbbing/pressure like someone punched him in the face he stated. Source: patient Exam Limitations: no limitations History of Present Illness Date Seen by Provider: Sep 04, 2018 Time Seen by Provider: 01:57 Initial Comments Patient presents to ER by private conveyance with chief complaint that his left eyetooth has been hurting for about 3 months but today started getting much worse and now is having a feeling of swelling and tingling in his left maxilla face. No discharge from the nose or mouth. No fevers chills nausea vomiting. Allergies and Home Medications Allergies Coded Allergies: Sulfa (Sulfonamide Antibiotics) (Unverified Allergy, Mild, 12/05/08) prednisone (Verified Adverse Reaction, Unknown, vomiting, 06/14/18) Home Medications Albuterol Sulfate 1 Puff Puff, 2 PUFF IH Q4H PRN for WHEEZING 1 PUFF = 90 MCG Prescribed by: OMERO ISAACS on 08/11/18 1046 Azithromycin 250 Mg Tablet, 250 MG PO UD TAKE 2 TABLETS TODAY, THEN TAKE 1 TABLET DAILY FOR 4 MORE DAYS Prescribed by: CEDRIC VALENCIA on 08/13/18 1307 Promethazine/Dextromethorphan 473 Ml Syrup, 5 ML PO Q6H PRN for COUGH Prescribed by: CEDRIC VALENCIA on 08/13/18 1307 Patient Home Medication List Home Medication List Reviewed: Yes Review of Systems Review of Systems Constitutional: No fever Eyes: Denies Drainage, Denies Pain Ears: Denies Dizziness, Denies Pain Nose: denies clots, denies congestion Past Xtwroqu-Duhdrv-Otjuwd Hx Patient Social History Alcohol Use: Rarely Uses Recreational Drug Use: No Drug of Choice: marijuana Type Used: Cigarettes 2nd Hand Smoke Exposure: Yes Recent Foreign Travel: No Contact w/Someone Who Travel: No Recent Infectious Disease Expo: No Recent Hopitalizations: No Physical Abuse: No Sexual Abuse: No Mistreated: No Fear: No Immunizations Up To Date Tetanus Booster (TDap): Less than 5yrs Past Medical History Surgeries: Yes Appendectomy, Tonsillectomy Respiratory: Yes Asthma, Sleep Apnea Cardiac: Yes Hypertension Neurological: No Reproductive Disorders: No Genitourinary: No Gastrointestinal: No Musculoskeletal: No Endocrine: Yes (morbid obesity) Diabetes, Non-Insulin dep HEENT: No Cancer: No Psychosocial: No Integumentary: No Blood Disorders: No Family Medical History Heart Disease Physical Exam Vital Signs Vital Signs - First Documented 09/04/18 01:03 Temp 97.9 Pulse 93 Resp 22 B/P (MAP) 152/109 (123) Pulse Ox 99 O2 Delivery Room Air Height, Weight, BMI Height: 5'8.00" Weight: 350lbs. 0oz. 158.487593mn; 58.5 BMI Method:Stated General Appearance: WD/WN, no apparent distress Eyes: bilateral eye normal inspection, bilateral eye PERRL, bilateral eye EOMI Ears: bilateral ear auricle normal, bilateral ear canal normal, bilateral ear TM normal Nose: normal inspection; No discharge Mouth/Throat: normal mouth inspection; No maxillary swelling; other (extensive dental caries of the left upper eye tooth) Neck: non-tender, full range of motion Progress/Results/Core Measures Results/Orders Vital Signs/I&O 09/04/18 01:03 Temp 97.9 Pulse 93 Resp 22 B/P (MAP) 152/109 (123) Pulse Ox 99 O2 Delivery Room Air Blood Pressure Mean: 123 Departure Impression Primary Impression: Dental caries Disposition: HOME, SELF-CARE Condition: Stable Departure-Patient Inst. Decision time for Depature: 02:11 Referrals: [facility] (PCP/Family) Primary Care Physician Patient Instructions: Tooth Abscess (DC) Add. Discharge Instructions: Use Tylenol 1000 mg every 8 hours and/or ibuprofen 800 mg every 8 hours as needed for pain. Use amoxicillin one capsule 3 times a day for the next week to get the pain and infection under control. Use viscous lidocaine 1 g on some gauze placed on the tooth stump as necessary every 2-4 hours for pain. Use Orajel or other similar gels when the lidocaine runs out. Follow-up with a dentist. All discharge instructions reviewed with patient and/or family. Voiced understanding. Scripts Amoxicillin (Amoxicillin) 500 Mg Capsule 500 MG PO TID for 7 Days, #21 CAP 0 Refills Prov: SHASHANK CAMARGO 09/04/18 SHASHANK CAMARGO Sep 04, 2018 02:12
[2018-09-04] MEDS ORDERED: AMOX500C2 PO (02:14)
[2018-09-04] MEDS ORDERED: KETOROLAC 60 MG/2 ML VIAL IM ONE (02:15)
[2018-09-04] MEDS ORDERED: LIDOCAINE 2% VISCOUS 15 ML UDC PO ONE (02:15)
[2018-09-04 02:41] VITALS: BP 144/106
== END 2018-09-04 02:41 | disposition home or self-care (01) ==
LOC: EDUNIT# 23:25 → ER 23:29
DX: K02.9 Dental caries, unspecified (principal); J45.909 Unspecified asthma, uncomplicated; G47.30 Sleep apnea, unspecified; I10 Essential (primary) hypertension; E11.9 Type 2 diabetes mellitus without complications; E66.01 Morbid (severe) obesity due to excess calories; F12.10 Cannabis abuse, uncomplicated; Z77.22 Contact with and (suspected) exposure to environmental tobacco smoke (acute) (chronic); Z90.89 Acquired absence of other organs; Z82.49 Family history of ischemic heart disease and other diseases of the circulatory system; Z90.49 Acquired absence of other specified parts of digestive tract; Z88.2 Allergy status to sulfonamides; Z88.8 Allergy status to other drugs, medicaments and biological substances; Z79.51 Long term (current) use of inhaled steroids
CPT/HCPCS: 99284